=== PATIENT | female | born 1990 | race Asian ===

== ENCOUNTER 2019-03-26 21:15 | Emergency (ER) | payer OTHER, SELFPAY ==
--- OUTSIDE RECORDS SUMMARY | 2019-03-26 21:16 | XMS REPORT ---
:1990 Author Organization [facility] Address [address] [place] [address] Dr. Washington [address] [place] [id number] Care Team Providers Name Role Phone Unavailable Unavailable Unavailable Problems This patient has no known problems. Allergies, Adverse Reactions, Alerts This patient has no known allergies or adverse reactions. Medications This patient has no known medications.
[2019-03-26 22:59] LABS: Absolute Lymphocytes (CBC) 1.7 K/uL (0.7-4.9); Basophils % 0.2 % (0-1.3); Hematocrit 42.5 % (36.0-45.0); Lymphocytes % 14.6 % (15.3-44.8); MPV 8.6 fL (7.6-11.3); RBC Red Blood Cell Count 5.04 M/uL (3.86-4.86)
[2019-03-26] MEDS ORDERED: FENTANYL CITR 100 MCG/2 ML ONE (23:18)
[2019-03-26] MEDS ORDERED: NA CHLORIDE 0.9% 1,000 ML ONE (23:18)
[2019-03-26 23:19] LABS: ALT/SGPT 137 U/L (12-78); AST/SGOT 231 U/L (15-37); Albumin 4.1 g/dL (3.4-5.0); Alkaline Phosphatase 102 U/L (45-117); BUN Blood Urea Nitrogen 15 mg/dL (7-18); Bicarbonate 27 mmol/L (21-32); Bilirubin Direct 0.2 mg/dL (0-0.2); Bilirubin Total 0.3 mg/dL (0.2-1.0); Glucose Level 135 mg/dL (74-106); Lipase 103 U/L (73-393); Potassium 3.9 mmol/L (3.5-5.1); Protein, Total 8.2 g/dL (6.4-8.2); Sodium Level 141 mmol/L (136-145)
[2019-03-26 23:20] LABS: Urine Blood NEGATIVE (NEG); Urine Glucose NEGATIVE (NEG); Urine Protein NEGATIVE (NEG); Urine Specific Gravity 1.025 (1.005-1.030)
[2019-03-26 23:20] LABS: Urine Bacteria <20 /HPF (<20); Urine Culture Reflex Order NOT NEEDED; Urine RBC <5 /HPF (NONE SEEN)
--- NOTE | 2019-03-27 01:27 | EDPHYS ---
Physician Documentation [facility] Name: Annetta Back Age: 28 yrs Sex: Female : 1990 Arrival Date: 03/26/2019 Time: 21:18 Bed 26 Private MD: ED Physician Mandeep Christianson HPI: 03/26 22:35 This 28 yrs old Female presents to ER via Wheelchair with complaints of Abdominal cp Pain. 22:35 The patient presents with abdominal pain in the epigastric area. Onset: The cp symptoms/episode began/occurred 2 hour(s) ago. 22:35 Associated signs and symptoms: Pertinent positives: nausea, pain to mid upper back cp times 3 days, Pertinent negatives: blood in stools, chest pain, constipation, diarrhea, fever, shortness of breath. 22:35 Severity of pain: in the emergency department the pain is unchanged despite home cp interventions. 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 - Social history:: Smoking status: Patient/guardian denies using tobacco. - Ebola Screening: : Patient denies travel to an Ebola-affected area in the 21 days before illness onset. ROS: 22:45 Constitutional: Negative for body aches, chills, fever, poor PO intake. cp 22:45 Eyes: Negative for injury, pain, redness, and discharge. cp 22:45 ENT: Negative for drainage from ear(s), ear pain, sore throat, difficulty swallowing, difficulty handling secretions. 22:45 Cardiovascular: Negative for chest pain, edema, palpitations. 22:45 Respiratory: Negative for cough, shortness of breath, wheezing. 22:45 Abdomen/GI: Positive for abdominal pain, of the epigastric area, Negative for vomiting, diarrhea, constipation, black/tarry stool, rectal bleeding. 22:45 Back: Positive for pain at rest, of the mid upper back, Negative for injury or acute deformity. 22:45 : Negative for urinary symptoms, pelvic pain, flank pain, vaginal bleeding, vaginal discharge. 22:45 Skin: Negative for cellulitis, rash. 22:45 Neuro: Negative for altered mental status, dizziness, headache, numbness, syncope, weakness. 22:45 All other systems are negative. Exam: 22:50 Constitutional: The patient appears in no acute distress, alert, awake, non-toxic, well cp developed, well nourished, uncomfortable. 22:50 Head/Face: Normocephalic, atraumatic. cp 22:50 Eyes: Periorbital structures: appear normal, Conjunctiva: normal, no exudate, no injection, Sclera: no appreciated abnormality, Lids and lashes: appear normal, bilaterally. 22:50 ENT: External ear(s): are unremarkable, Nose: is normal, Mouth: Lips: moist, Oral mucosa: pink and intact, moist, Posterior pharynx: is normal, airway is patent, no erythema, no exudate. 22:50 Neck: ROM/movement: is normal, is supple, without pain, no range of motions limitations, no nuchal rigidity. 22:50 Chest/axilla: Inspection: normal, Palpation: is normal, no crepitus, no tenderness. 22:50 Cardiovascular: Rate: normal, Rhythm: regular. 22:50 Respiratory: the patient does not display signs of respiratory distress, Respirations: normal, no use of accessory muscles, no retractions, no splinting, no tachypnea, labored breathing, is not present, Breath sounds: are clear throughout, no decreased breath sounds, no stridor, no wheezing. 22:50 Abdomen/GI: Inspection: abdomen appears normal, Bowel sounds: active, all quadrants, Palpation: soft, in all quadrants, moderate abdominal tenderness, in the epigastric area and right upper quadrant, rebound tenderness, is not appreciated, voluntary guarding, is elicited in the epigastric area and right upper quadrant. 22:50 Back: pain, that is moderate, of the upper mid back, ROM is normal. 22:50 Skin: cellulitis, is not appreciated, no rash present. 22:50 Neuro: Orientation: to person, place \T\ time. Mentation: is normal, Cerebellar function: is grossly normal, Motor: moves all fours, strength is normal, Sensation: is normal. Vital Signs: 21:23 BP 102 / 78; Pulse 80; Resp 18; Temp 98.4; Pulse Ox 97% on R/A; Weight 73.94 kg (R); aj1 Height 5 ft. 2 in. (157.48 cm) (R); Pain 9/10; 23:30 BP 115 / 64; Pulse 80; Resp 18; Pulse Ox 99% on R/A; wh 03/27 00:30 BP 119 / 59; Pulse 66; Resp 18; Pulse Ox 100% on R/A; wh 01:30 BP 116 / 78; Pulse 67; Resp 18; Pulse Ox 100% on R/A; wh 03/26 21:23 Body Mass Index 29.81 (73.94 kg, 157.48 cm) aj1 MDM: 03/26 22:35 Patient medically screened. cp 23:00 Differential diagnosis: appendicitis, bowel obstruction, cholecystitis, Cholelithiasis, cp gastritis, pancreatitis, Peptic Ulcer Disease, Perf. Duodenal Ulcer, Perf. Gastric Ulcer, urinary tract infection. 03/27 01:24 Data reviewed: vital signs, nurses notes, lab test result(s), radiologic studies, CT cp scan, I have discussed the patient's presentation/case with the attending Emergency Department Physician; and as a result, I will discharge patient. 01:24 Counseling: I had a detailed discussion with the patient and/or guardian regarding: the cp historical points, exam findings, and any diagnostic results supporting the discharge/admit diagnosis, lab results, radiology results, to return to the emergency department if symptoms worsen or persist or if there are any questions or concerns that arise at home. Response to treatment: the patient's symptoms have markedly improved after treatment, VSS. Pain improved, and as a result, I will discharge patient. Special discussion: Based on the patient's Hx, exam, and Dx evaluation, there is no indication for emergent surgery or inpatient Tx. It is understood by the patient/guardian that if the Sx's persist or worsen they need to return immediately for re-evaluation. 03/26 22:25 Order name: Basic Metabolic Panel; Complete Time: 00:06 cp 03/27 00:06 Interpretation: Normal except: GLUC 135. cp 03/26 22:25 Order name: CBC with Diff; Complete Time: 23:03 cp 03/26 23:03 Interpretation: Normal except: WBC 11.8; RBC 5.04; MCH 26.6; MCHC 31.5; MISSY% 79.7; LYM% cp 14.6; NEUT A 9.4. 03/26 22:25 Order name: Creatinine for Radiology; Complete Time: 00:06 03/26 22:25 Order name: Hepatic Function; Complete Time: 00:06 cp 03/27 00:07 Interpretation: Normal except: AST 231; ALT 137; GLOB 4.1; A/G 1.0. 03/26 22:25 Order name: Lipase; Complete Time: 00:06 cp 03/26 22:25 Order name: Urine Microscopic Only; Complete Time: 00:06 cp 03/26 22:25 Order name: IV Saline Lock; Complete Time: 22:46 cp 03/26 22:25 Order name: Labs collected and sent; Complete Time: 22:46 cp 03/26 22:25 Order name: Urine Test (obtain specimen); Complete Time: 22:46 cp 03/26 23:02 Order name: CT Abd/Pelvis - Without Contrast 03/26 23:15 Order name: Urine Dipstick--Ancillary (enter results); Complete Time: 00:06 ar5 03/26 23:15 Order name: Urine --Ancillary (enter results); Complete Time: 00:06 ar5 Administered Medications: 03/26 23:25 Drug: NS 0.9% 1000 ml Route: IV; Rate: 1 bolus; Site: left antecubital; 03/27 00:53 Follow up: Response: No adverse reaction; IV Status: Completed infusion 03/26 23:25 Drug: fentaNYL (PF) 25 mcg Route: IVP; Site: left antecubital; 03/27 00:53 Follow up: Response: No adverse reaction; Pain is decreased; RASS: Alert and Calm (0) Disposition: 03/27/19 01:25 Discharged to Home. Impression: Epigastric pain, Back pain. - Condition is Stable. - Discharge Instructions: Abdominal Pain, Adult, Back Pain, Adult. - Prescriptions for Bentyl 20 mg Oral Tablet - take 1 tablet by ORAL route every 6 hours As needed; 20 tablet. Zofran 4 mg Oral Tablet - take 1 tablet by ORAL route every 12 hours As needed; 20 tablet. Ibuprofen 800 mg Oral Tablet - take 1 tablet by ORAL route every 8 hours As needed take with food; 30 tablet. - Medication Reconciliation Form, Thank You Letter, Antibiotic Education, Prescription Opioid Use form. - Follow up: Emergency Department; When: As needed; Reason: Worsening of condition. - Problem is new. - Symptoms have improved. Signatures: Dispatcher [employer] EDRochelle Garza RN RN aj1 Mauricio Ambrose PA PA cp Habalo, Winsy wh Corrections: (The following items were deleted from the chart) 01:52 01:25 03/27/2019 01:25 Discharged to Home. Impression: Epigastric pain; Back pain. Condition is Stable. Forms are Medication Reconciliation Form, Thank You Letter, Antibiotic Education, Prescription Opioid Use. Follow up: Emergency Department; When: As needed; Reason: Worsening of condition. Problem is new. Symptoms have improved. cp 23:35 03/26 22:35 Associated signs and symptoms: Pertinent positives: nausea, upper mid back cp pain times 2 days, cp
--- NOTE | 2019-03-27 01:27 | ER ---
Nurse's Notes [facility] Name: Annetta Back Age: 28 yrs Sex: Female : 1990 Arrival Date: 03/26/2019 Time: 21:18 Bed 26 Private MD: Diagnosis: Epigastric pain;Back pain Presentation: 03/26 21:21 Presenting complaint: Patient states: Pain to the right upper back since Friday and aj1 then epigastric pain that started 2 hours ago. Denies N/V/D. Denies fever. Transition of care: patient was not received from another setting of care. Onset of symptoms was March 26, 2019. Risk Assessment: Do you want to hurt yourself or someone else? Patient reports no desire to harm self or others. Initial Sepsis Screen: Does the patient meet any 2 criteria? No. Patient's initial sepsis screen is negative. Does the patient have a suspected source of infection? Yes: Acute abdominal pain. Care prior to arrival: None. 21:21 Method Of Arrival: Wheelchair aj 21:21 Acuity: AMY 3 aj1 Triage Assessment: 21:23 General: Appears uncomfortable, Behavior is cooperative, restless. Pain: Complains of aj1 pain in right scapular area and epigastric area Pain currently is 9 out of 10 on a pain scale. Neuro: Level of Consciousness is awake, alert, obeys commands. Cardiovascular: Patient's skin is warm and dry. Respiratory: Airway is patent Respiratory effort is even, unlabored, Respiratory pattern is regular, symmetrical. GI: Reports upper abdominal pain. 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 - Social history:: Smoking status: Patient/guardian denies using tobacco. - Ebola Screening: : Patient denies travel to an Ebola-affected area in the 21 days before illness onset. Screenin:05 Abuse screen: Denies threats or abuse. Denies injuries from another. Nutritional wh screening: No deficits noted. Tuberculosis screening: No symptoms or risk factors identified. Fall Risk None identified. Assessment: 23:05 General: Appears in no apparent distress. uncomfortable, Behavior is calm, cooperative, ca1 appropriate for age. Pain: Complains of pain in epigastric area Pain radiates to back Pain currently is 10 out of 10 on a pain scale. Quality of pain is described as aching. 23:05 Neuro: Level of Consciousness is awake, alert, obeys commands, Oriented to. Cardiovascular: Heart tones S1 S2. Respiratory: Airway is patent Respiratory effort is even, unlabored, Respiratory pattern is regular, symmetrical. Respiratory: Breath sounds are clear bilaterally. GI: Abdomen is flat, non-distended, Bowel sounds present X 4 quads. Abd is soft and non tender X 4 quads. : No signs and/or symptoms were reported regarding the genitourinary system. EENT: No signs and/or symptoms were reported regarding the EENT system. Derm: Skin is intact, is healthy with good turgor, Skin is pink, warm \T\ dry. normal. Musculoskeletal: Range of motion: intact in all extremities. 03/27 00:30 Reassessment: Patient appears in no apparent distress at this time. No changes from previously documented assessment. Patient and/or family updated on plan of care and expected duration. Pain level reassessed. Patient is alert, oriented x 3, equal unlabored respirations, skin warm/dry/pink. 01:50 Reassessment: Patient appears in no apparent distress at this time. No changes from previously documented assessment. Patient and/or family updated on plan of care and expected duration. Pain level reassessed. Patient is alert, oriented x 3, equal unlabored respirations, skin warm/dry/pink. Patient states feeling better. Patient states symptoms have improved. Vital Signs: 03/26 21:23 BP 102 / 78; Pulse 80; Resp 18; Temp 98.4; Pulse Ox 97% on R/A; Weight 73.94 kg (R); aj1 Height 5 ft. 2 in. (157.48 cm) (R); Pain 9/10; 23:30 BP 115 / 64; Pulse 80; Resp 18; Pulse Ox 99% on R/A; 03/27 00:30 BP 119 / 59; Pulse 66; Resp 18; Pulse Ox 100% on R/A; 01:30 BP 116 / 78; Pulse 67; Resp 18; Pulse Ox 100% on R/A; 03/26 21:23 Body Mass Index 29.81 (73.94 kg, 157.48 cm) aj1 ED Course: 03/26 21:18 Patient arrived in ED. cl3 21:23 Triage completed. 1 21:23 Arm band placed on Patient placed in waiting room, Patient notified of wait time. 1 22:25 Mauricio Ambrose PA is PHCP. 22:25 Mandeep Christianson MD is Attending Physician. 22:29 Ruthy Montiel is Primary Nurse. 22:45 Inserted saline lock: 20 gauge in left antecubital area, using aseptic technique. Blood wh collected. 23:05 Patient has correct armband on for positive identification. Placed in gown. Bed in low wh position. Call light in reach. Side rails up X 1. Pulse ox on. NIBP on. 03/27 00:29 CT Abd/Pelvis - Without Contrast In Process Unspecified. EDMS 01:51 No provider procedures requiring assistance completed. IV discontinued, intact, bleeding controlled, No redness/swelling at site. Administered Medications: 03/26 23:25 Drug: NS 0.9% 1000 ml Route: IV; Rate: 1 bolus; Site: left antecubital; 03/27 00:53 Follow up: Response: No adverse reaction; IV Status: Completed infusion 03/26 23:25 Drug: fentaNYL (PF) 25 mcg Route: IVP; Site: left antecubital; 03/27 00:53 Follow up: Response: No adverse reaction; Pain is decreased; RASS: Alert and Calm (0) Outcome: 01:25 Discharge ordered by MD. 01:52 Discharged to home ambulatory, with family. 01:52 Condition: good 01:52 Discharge instructions given to patient, Instructed on discharge instructions, follow up and referral plans. medication usage, POC Abd Pain Demonstrated understanding of instructions, follow-up care, medications, POC Prescriptions given X 3. 01:52 Patient left the ED. Signatures: Dispatcher [employer] EDMS Rochelle Huang RN RN aj1 Mauricio Ambrose PA PA cp Habalo, Winsy Yocasta Jonas RN RN ca1 Lewis, Charde cl3
[2019-03-27 03:04] VITALS: TEMP 98.4
[2019-03-27 03:06] VITALS: O2SAT 100
[2019-03-27 03:07] VITALS: BP 116/78
--- NOTE | 2019-03-30 13:50 | RAD REPORT ---
EXAM DESCRIPTION: CT - Abdomen Pelvis Wo Contrast - 03/27/2019 3:11 am CLINICAL HISTORY: ABD PAIN COMPARISON: None. TECHNIQUE: CT ABDOMEN PELVIS WITHOUT IV CONTRAST on 03/26/2019 11:02 PM CDT This exam was performed according to our departmental dose-optimization program, which includes autom ated exposure control, adjustment of the mA and/or kV according to patient size and/or use of iterati ve reconstruction technique. FINDINGS: Lower lungs are clear. Abdomen: The liver is normal in appearance. There is no biliary dilatation. Gallbladder is normal in appearance. The pancreas and spleen are normal in appearance. The adrenal glands and kidneys are unre markable. Abdominal aorta is normal in course and caliber without aneurysm. There is no free air. There is no r etroperitoneal adenopathy. Pelvis: There is no bowel obstruction. Urinary bladder is unremarkable. There is no free fluid. The u terus is normal in size. Appendix is normal. Skeleton: There are no acute osseous findings. No suspicious bony lesions. IMPRESSION: No definite acute inflammatory process. Electronically signed by: Avelino Bo MD 03/27/2019 12:27 AM CDT Due to temporary technical issues with the PACS/Fluency reporting system, reports are being signed by the in house radiologist as a courtesy to ensure prompt reporting. The interpreting radiologist is f ully responsible for the content of the report.
== END 2019-03-27 01:52 | disposition home or self-care (01) ==
LOC: ER 21:15
DX: M54.9 Dorsalgia, unspecified (principal); I95.9 Hypotension, unspecified; Z91.048 Other nonmedicinal substance allergy status
CPT/HCPCS: 36415; 74176; 80048; 80076; 81003; 81015; 81025; 83690; 85025; 96361; 96374; 99284; J3010; J7030

== ENCOUNTER 2020-03-21 19:32 | Emergency (ER) | payer SELFPAY ==
--- OUTSIDE RECORDS SUMMARY | 2020-03-21 19:34 | XMS REPORT | Continuity of Care Document ---
:1990 Author Organization [facility] Address [address] [place] [address] Dr. Washington [address] [place] [id number] Care Team Providers Name Role Phone Unavailable Unavailable Unavailable Problems This patient has no known problems. Allergies, Adverse Reactions, Alerts This patient has no known allergies or adverse reactions. Medications This patient has no known medications. Procedures This patient has no known procedures. Results This patient has no known results.
[2020-03-21 21:00] LABS: Urine Blood TRACE (NEG); Urine Glucose NEGATIVE (NEG); Urine Protein NEGATIVE (NEG); Urine pH 5.5 (5.0-7.0)
[2020-03-21] MEDS ORDERED: DIPHENHYDRAMINE 50 MG/ML VIAL ONE (21:57)
[2020-03-21] MEDS ORDERED: METOCLOPRAMIDE 10 MG/2mL INJ ONE (21:57)
[2020-03-21] MEDS ORDERED: KETOROLAC 30 MG/ML INJ ONE (21:57)
[2020-03-21] MEDS ORDERED: NA CHLORIDE 0.9% 1,000 ML ONE (21:57)
[2020-03-21 22:05] LABS: Absolute Lymphocytes (CBC) 2.7 K/uL (0.7-4.9); Basophils % 0.4 % (0-1.3); Lymphocytes % 35.6 % (15.3-44.8); MPV 8.1 fL (7.6-11.3); RBC Red Blood Cell Count 5.16 M/uL (3.86-4.86)
[2020-03-21 22:22] LABS: ALT/SGPT 24 U/L (12-78); AST/SGOT 11 U/L (15-37); Alkaline Phosphatase 71 U/L (45-117); BUN Blood Urea Nitrogen 7 mg/dL (7-18); Bicarbonate 28 mmol/L (21-32); Bilirubin Total 0.2 mg/dL (0.2-1.0); Glucose Level 91 mg/dL (74-106); Protein, Total 8.4 g/dL (6.4-8.2); Sodium Level 142 mmol/L (136-145)
--- NOTE | 2020-03-21 23:10 | ER ---
Nurse's Notes [facility] Name: Annetta Malcolm Age: 29 yrs Sex: Female : 1990 Arrival Date: 03/21/2020 Time: 19:33 Bed 20 Private MD: Diagnosis: Headache Presentation: 03/21 20:18 Chief complaint: Patient states: Feeling sick and tired x 2 weeks. Feels warm, dizzy, ca1 weak, headache x 2 weeks. Denies fever, Htemp 98F. Coronavirus screen: Client denies travel out of the [place] in the last 14 days. At this time, the client does not indicate any symptoms associated with coronavirus-19. Ebola Screen: Patient negative for fever greater than or equal to 101.5 degrees Fahrenheit, and additional compatible Ebola Virus Disease symptoms Patient denies exposure to infectious person. Patient denies travel to an Ebola-affected area in the 21 days before illness onset. No symptoms or risks identified at this time. Initial Sepsis Screen: Does the patient meet any 2 criteria? No. Patient's initial sepsis screen is negative. Does the patient have a suspected source of infection? No. Patient's initial sepsis screen is negative. Risk Assessment: Do you want to hurt yourself or someone else? Patient reports no desire to harm self or others. Onset of symptoms was March 21, 2020. 20:18 Method Of Arrival: Ambulatory ca1 20:18 Acuity: AMY 3 ca1 Triage Assessment: 21:20 Pain: Also complains of dizziness. rr5 21:20 Headache History: The patient has had previous headaches and this one is different than rr5 previous episodes. General: Appears in no apparent distress. comfortable, Behavior is calm, cooperative, appropriate for age. Pain: Complains of pain in forehead. 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 - Social history:: Smoking status: Patient denies any tobacco usage or history of. Screenin:30 Abuse screen: Denies threats or abuse. Denies injuries from another. Nutritional rr5 screening: No deficits noted. Tuberculosis screening: No symptoms or risk factors identified. Fall Risk IV access (20 points). Total Ortiz Fall Scale indicates No Risk (0-24 pts). Assessment: 21:05 General: Appears in no apparent distress. comfortable, Behavior is calm, cooperative, rr5 appropriate for age, Reports fatigue for. 21:05 Pain: Complains of pain in head Pain currently is 8 out of 10 on a pain scale. Quality rr5 of pain is described as aching, Pain began gradually, Is intermittent. Neuro: Level of Consciousness is awake, alert, obeys commands, Oriented to person, place, time, situation, Reports dizziness, headache. Cardiovascular: Capillary refill < 3 seconds Patient's skin is warm and dry. Respiratory: Airway is patent Respiratory effort is even, unlabored, Respiratory pattern is regular, symmetrical. GI: No signs and/or symptoms were reported involving the gastrointestinal system. : No signs and/or symptoms were reported regarding the genitourinary system. EENT: No signs and/or symptoms were reported regarding the EENT system. Derm: Skin is intact, is healthy with good turgor, Skin temperature is warm. Musculoskeletal: Circulation, motion, and sensation intact. Capillary refill < 3 seconds. 22:00 Reassessment: Patient appears in no apparent distress at this time. Patient is alert, rr5 oriented x 3, equal unlabored respirations, skin warm/dry/pink. Vital Signs: 20:18 BP 130 / 69; Pulse 68; Resp 18 S; Temp 98.2(TE); Pulse Ox 100% on R/A; Weight 77.11 kg ca1 (R); Height 5 ft. 2 in. (157.48 cm) (R); 21:20 BP 129 / 68; Pulse 70; Resp 18; Pulse Ox 100% ; Pain 8/10; rr5 22:20 BP 118 / 62; Pulse 65; Resp 14; Pulse Ox 99% on R/A; rr5 23:23 BP 121 / 70; Pulse 61; Resp 16; Pulse Ox 99% ; Pain 0/10; rr5 20:18 Body Mass Index 31.09 (77.11 kg, 157.48 cm) ca1 ED Course: 19:33 Patient arrived in ED. am2 20:21 Triage completed. ca1 20:22 Arm band placed on right wrist. ca1 21:05 Chandu Adam, RN is Primary Nurse. rr5 21:10 Isael Goldstein NP is PHCP. pm1 21:10 Mauricio Kauffman MD is Attending Physician. pm1 21:10 Patient has correct armband on for positive identification. Bed in low position. Call rr5 light in reach. Pulse ox on. NIBP on. 21:44 CT Head Brain wo Cont In Process Unspecified. EDMS 22:00 Inserted saline lock: 20 gauge in right forearm, using aseptic technique. Blood rr5 collected. 23:24 No provider procedures requiring assistance completed. IV discontinued, intact, rr5 bleeding controlled, No redness/swelling at site. Pressure dressing applied. Administered Medications: 21:50 Drug: NS 0.9% 1000 ml Route: IV; Rate: 1000 ml; Site: right forearm; rr5 23:00 Follow up: Response: No adverse reaction; IV Status: Completed infusion; IV Intake: rr5 1000ml 21:51 Drug: TORadol 30 mg Route: IVP; Site: right forearm; rr5 22:51 Follow up: Response: No adverse reaction; Marked relief of symptoms rr5 21:55 Drug: Reglan 10 mg Route: IVP; Site: right forearm; rr5 22:55 Follow up: Response: No adverse reaction; Marked relief of symptoms rr5 21:57 Drug: Benadryl 12.5 mg Route: IVP; Site: right forearm; rr5 23:00 Follow up: Response: No adverse reaction; Marked relief of symptoms rr5 Intake: 23:00 IV: 1000ml; Total: 1000ml. rr5 Outcome: 23:09 Discharge ordered by . pm1 23:24 Discharged to home ambulatory. rr5 23:24 Condition: stable 23:24 Discharge instructions given to patient, Instructed on discharge instructions, follow up and referral plans. medication usage, Demonstrated understanding of instructions, follow-up care, medications, Prescriptions given X 1. 23:26 Patient left the ED. rr5 Signatures: Dispatcher [employer] EDNJ Isael Goldstein NP CORPORATE DIRECTOR TALENT ASSESSMENT pm1 Jayne Moreno am2 Chandu Adam, RN RN rr5 Yocasta Jonas RN RN ca1 Corrections: (The following items were deleted from the chart) 21:09 20:18 Chief complaint: Patient states: Feeling sick and tired x 2 weeks. Feels warm, ca1 dizzy, weak, headache x 2 weeks. Denies fever, Htemp 98F. ca1
--- NOTE | 2020-03-21 23:10 | EDPHYS ---
Physician Documentation [facility] Name: Annetta Malcolm Age: 29 yrs Sex: Female : 1990 Arrival Date: 03/21/2020 Time: 19:33 Bed 20 Private MD: ANTOINE Physician Mauricio Kauffman HPI: 03/21 21:03 This 29 yrs old Female presents to ER via Ambulatory with complaints of Headache, pm1 Dizziness, fatigue. 21:03 The patient complains of pain to the forehead. The patient describes the headache as pm1 aching. Onset: The symptoms/episode began/occurred 2 week(s) ago. Associated signs and symptoms: Pertinent positives: dizziness, Pertinent negatives: fever, nausea, vomiting, weakness. Severity of symptoms: in the emergency department the pain is unchanged. Patient is concerned that she might have diabetes. Patient with gestational diabetes with prior two pregnancies and she has not followed up with a doctor in the past two years to assess for diabetes. 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 - Social history:: Smoking status: Patient denies any tobacco usage or history of. ROS: 21:03 Cardiovascular: Negative for chest pain, palpitations, and edema, Respiratory: Negative pm1 for shortness of breath, cough, wheezing, and pleuritic chest pain, Abdomen/GI: Negative for abdominal pain, nausea, vomiting, diarrhea, and constipation, Back: Negative for injury and pain, MS/Extremity: Negative for injury and deformity, Skin: Negative for injury, rash, and discoloration. 21:03 Constitutional: Positive for fatigue, Negative for body aches, chills, fever, poor PO intake. 21:03 Neuro: Positive for dizziness, headache. Exam: 21:03 Constitutional: This is a well developed, well nourished patient who is awake, alert, pm1 and in no acute distress. Head/Face: Normocephalic, atraumatic. Eyes: Pupils equal round and reactive to light, extra-ocular motions intact. Lids and lashes normal. Conjunctiva and sclera are non-icteric and not injected. Cornea within normal limits. Periorbital areas with no swelling, redness, or edema. ENT: Nares patent. No nasal discharge, no septal abnormalities noted. Tympanic membranes are normal and external auditory canals are clear. Oropharynx with no redness, swelling, or masses, exudates, or evidence of obstruction, uvula midline. Mucous membranes moist. Neck: Trachea midline, no thyromegaly or masses palpated, and no cervical lymphadenopathy. Supple, full range of motion without nuchal rigidity, or vertebral point tenderness. No Meningismus. 21:03 Skin: Warm, dry with normal turgor. Normal color with no rashes, no lesions, and no evidence of cellulitis. MS/ Extremity: Pulses equal, no cyanosis. Neurovascular intact. Full, normal range of motion. 21:03 Cardiovascular: Exam negative for acute changes, Rate: normal, Rhythm: regular, Pulses: no pulse deficits are appreciated. 21:03 Respiratory: Exam negative for acute changes, respiratory distress, shortness of breath. 21:03 Abdomen/GI: Exam negative for acute changes, Inspection: abdomen appears normal, Palpation: abdomen is soft and non-tender, in all quadrants. 21:03 Neuro: Exam negative for acute changes, Orientation: is normal, Mentation: is normal, Cranial nerves: CN II- XII are normal as tested, Motor: is normal, moves all fours, strength is normal, strength is 5/5 in all extremities. Vital Signs: 20:18 BP 130 / 69; Pulse 68; Resp 18 S; Temp 98.2(TE); Pulse Ox 100% on R/A; Weight 77.11 kg ca1 (R); Height 5 ft. 2 in. (157.48 cm) (R); 21:20 BP 129 / 68; Pulse 70; Resp 18; Pulse Ox 100% ; Pain 8/10; rr5 22:20 BP 118 / 62; Pulse 65; Resp 14; Pulse Ox 99% on R/A; rr5 23:23 BP 121 / 70; Pulse 61; Resp 16; Pulse Ox 99% ; Pain 0/10; rr5 20:18 Body Mass Index 31.09 (77.11 kg, 157.48 cm) ca1 MDM: 21:15 Patient medically screened. pm1 22:32 Data reviewed: vital signs. Data interpreted: Pulse oximetry: on room air is 100 %. pm1 Interpretation: normal. 23:08 Counseling: I had a detailed discussion with the patient and/or guardian regarding: the pm1 historical points, exam findings, and any diagnostic results supporting the discharge/admit diagnosis, lab results, radiology results, the need for outpatient follow up, to return to the emergency department if symptoms worsen or persist or if there are any questions or concerns that arise at home. 03/21 20:44 Order name: Urine Dipstick--Ancillary (enter results); Complete Time: 21:20 mw2 03/21 20:44 Order name: Urine --Ancillary (enter results); Complete Time: 21:20 2 03/21 21:23 Order name: CT Head Brain wo Cont pm1 03/21 21:23 Order name: CBC with Diff; Complete Time: 22:24 pm1 03/21 21:23 Order name: CMP; Complete Time: 22:24 pm1 Administered Medications: 21:50 Drug: NS 0.9% 1000 ml Route: IV; Rate: 1000 ml; Site: right forearm; rr5 23:00 Follow up: Response: No adverse reaction; IV Status: Completed infusion; IV Intake: rr5 1000ml 21:51 Drug: TORadol 30 mg Route: IVP; Site: right forearm; rr5 22:51 Follow up: Response: No adverse reaction; Marked relief of symptoms rr5 21:55 Drug: Reglan 10 mg Route: IVP; Site: right forearm; rr5 22:55 Follow up: Response: No adverse reaction; Marked relief of symptoms rr5 21:57 Drug: Benadryl 12.5 mg Route: IVP; Site: right forearm; rr5 23:00 Follow up: Response: No adverse reaction; Marked relief of symptoms rr5 Disposition: 03/22 16:42 Co-signature as Attending Physician, Mauricio Kauffman MD I agree with the assessment and carlos plan of care. Disposition: 03/21/20 23:09 Discharged to Home. Impression: Headache. - Condition is Stable. - Discharge Instructions: General Headache Without Cause. - Prescriptions for Fiorinal 50- 325-40 mg Oral Capsule - take 1 capsule by ORAL route every 4 hours As needed - not to exceed 6 capsules per day; 20 capsule. - Medication Reconciliation Form, Thank You Letter, Antibiotic Education, Prescription Opioid Use form. - Follow up: Emergency Department; When: As needed; Reason: Worsening of condition. Follow up: Private Physician; When: 2 - 3 days; Reason: Recheck today's complaints, Continuance of care, Re-evaluation by your physician. - Problem is new. - Symptoms are resolved. Signatures: Dispatcher [employer] EDMS Mauricio Kauffman, Isael Nash MD, cha, PRIMARY CARE PEDIATRICIAN PRIMARY CARE PEDIATRICIAN pm1 Cahndu Adam RN RN rr5 Yocasta Jonas RN RN ca1 Corrections: (The following items were deleted from the chart) 03/21 23:26 23:09 03/21/2020 23:09 Discharged to Home. Impression: Headache. Condition is Stable. rr5 Forms are Medication Reconciliation Form, Thank You Letter, Antibiotic Education, Prescription Opioid Use. Follow up: Emergency Department; When: As needed; Reason: Worsening of condition. Follow up: Private Physician; When: 2 - 3 days; Reason: Recheck today's complaints, Continuance of care, Re-evaluation by your physician. Problem is new. Symptoms are resolved. pm1
--- NOTE | 2020-03-22 12:28 | RAD REPORT ---
EXAM DESCRIPTION: CT - Head Brain Wo Cont - 03/22/2020 6:47 am CLINICAL HISTORY: HEADACHE TECHNIQUE: Axial computed tomography images of the head/brain without intravenous contrast. Sagitt al and coronal reformatted images were created and reviewed. This CT exam was performed using one o r more of the following dose reduction techniques: automated exposure control, adjustment of the mA and/or kV according to patient size, and/or use of iterative reconstruction technique. COMPARISON: No relevant prior studies available. FINDINGS: Brain: Unremarkable. No hemorrhage. No significant white matter disease. No edema. Ventricles: Unremarkable. No ventriculomegaly. Bones/joints: Unremarkable. No acute fracture. Soft tissues: Unremarkable. Sinuses: Unremarkable as visualized. No acute sinusitis. Mastoid air cells: Unremarkable as visualized. No mastoid effusion. IMPRESSION: No abnormality noted. Electronically signed by: Rossy López MD 03/21/2020 9:55 PM CDT Due to temporary technical issues with the PACS/Fluency reporting system, reports are being signed by the in house radiologist without review as a courtesy to ensure prompt reporting. The interpreting r adiologist is fully responsible for the content of the report.
== END 2020-03-21 23:26 | disposition home or self-care (01) ==
LOC: ER 19:32
DX: R51 Headache (principal); Z91.09 Other allergy status, other than to drugs and biological substances
CPT/HCPCS: 36415; 70450; 80053; 81003; 81025; 85025; 96361; 96374; 96375; 99284; J1200; J2765; J7030

== ENCOUNTER 2021-11-21 21:21 | Emergency (ER) | payer SELFPAY ==
--- OUTSIDE RECORDS SUMMARY | 2021-11-21 21:23 | XMS REPORT | Continuity of Care Document ---
:1990 Author Organization [facility] Address [address] [place] [address] Dr. [place] [address] [place] [id number] Care Team Providers Name Role Phone Unavailable Unavailable Unavailable Problems This patient has no known problems. Allergies, Adverse Reactions, Alerts This patient has no known allergies or adverse reactions. Medications This patient has no known medications. Procedures This patient has no known procedures. Results This patient has no known results.
[2021-11-21] MEDS ORDERED: NA CHLORIDE 0.9% 2,000 ML ONE (22:15)
[2021-11-21] MEDS ORDERED: ACETAMINOPHEN 325 MG TABLET ONE (22:15)
[2021-11-21] MEDS ORDERED: NA CHLORIDE 0.9% 500 ML ONE (22:15)
[2021-11-21 22:24] LABS: Absolute Lymphocytes (CBC) 0.3 K/uL (0.7-4.9); Hematocrit 39.5 % (36.0-45.0); Lymphocytes % 2.7 % (15.3-44.8); MPV 8.5 fL (7.6-11.3); RBC Red Blood Cell Count 4.94 M/uL (3.86-4.86)
[2021-11-21 22:39] LABS: ALT/SGPT 56 U/L (12-78); AST/SGOT 36 U/L (15-37); Albumin 3.6 g/dL (3.4-5.0); Alkaline Phosphatase 86 U/L (45-117); BUN Blood Urea Nitrogen 8 mg/dL (7-18); Bicarbonate 22 mmol/L (21-32); Bilirubin Total 0.6 mg/dL (0.2-1.0); Glucose Level 264 mg/dL (74-106); Potassium 3.5 mmol/L (3.5-5.1); Protein, Total 7.4 g/dL (6.4-8.2); Sodium Level 132 mmol/L (136-145)
[2021-11-21 22:48] LABS: Protime INR 1.06
[2021-11-21 23:07] LABS: SARS-COV-2 RT PCR NEGATIVE (NEGATIVE)
[2021-11-21 23:17] LABS: Urine Blood Trace-lysed (Negative); Urine Glucose 1+ (Negative); Urine Protein Negative (Negative); Urine pH 5.5 (5.0-7.0)
--- NOTE | 2021-11-21 23:20 | ER ---
Nurse's Notes [facility] Name: Annetta Malcolm Age: 31 yrs Sex: Female : 1990 Arrival Date: 11/21/2021 Time: 21:23 Bed 14 Private MD: Diagnosis: Fever, unspecified;Viral infection, unspecified;Acute upper respiratory infection, unspecified;Hyperglycemia, unspecified Presentation: 11/21 21:27 Chief complaint: Patient states: "I was running a 101 temperature and my throat hurts, vc1 I feel really weak." Spouse and/or significant other states: "I came home from work and she was really weak and said she was running a fever.". Coronavirus screen: Vaccine status: Patient reports receiving the 2nd dose of the covid vaccine. Pfizer chills, cough unrelated to allergies, fatigue, fever, headache, sore throat, Client presents with at least one sign or symptom that may indicate coronavirus-19. Standard/surgical mask placed on the client. Provider contacted for isolation considerations. Ebola Screen: No symptoms or risks identified at this time. Risk Assessment: Do you want to hurt yourself or someone else? Patient reports no desire to harm self or others. Onset of symptoms was November 20, 2021. Care prior to arrival: Medication(s) given: Tylenol, 1000 mg. 21:27 Method Of Arrival: Wheelchair vc1 21:27 Acuity: AMY 2 vc1 21:42 Initial Sepsis Screen: Does the patient meet any 2 criteria? RR > 20 per min. HR > 90 vc1 bpm. Yes Does the patient have a suspected source of infection? Yes: Other: Fever, cough, vomiting. Triage Assessment: 21:32 General: Appears in no apparent distress. uncomfortable, ill, Behavior is cooperative, vc1 appropriate for age, anxious. Pain: Complains of pain in Throat, head, neck, and back. Pain does not radiate. Pain currently is 10 out of 10 on a pain scale. EENT: Reports pain when swallowing. Neuro: Odom Agitation-Sedation Scale (RASS): -1 Drowsy Level of Consciousness is awake, alert, obeys commands, Oriented to person, place, time, situation, Appropriate for age Reports headache. Cardiovascular: No deficits noted. Respiratory: Airway is patent Respiratory effort is even, unlabored, Respiratory pattern is regular, symmetrical. GI: No deficits noted. : No deficits noted. 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 It has been more than one year since last vaccine. - Social history:: Smoking status: Patient denies any tobacco usage or history of. Screenin:18 Abuse screen: Denies threats or abuse. Nutritional screening: No deficits noted. ll3 Tuberculosis screening: No symptoms or risk factors identified. Fall Risk No fall in past 12 months (0 pts). No secondary diagnosis (0 pts). IV access (20 points). Ambulatory Aid- None/Bed Rest/Nurse Assist (0 pts). Gait- Normal/Bed Rest/Wheelchair (0 pts) Mental Status- Oriented to own ability (0 pts). Total Ortiz Fall Scale indicates No Risk (0-24 pts). Assessment: 22:18 General: Appears uncomfortable, Behavior is calm, cooperative. Pain: Denies pain. ll3 Neuro: Level of Consciousness is awake, alert, obeys commands, Oriented to person, place, time, situation, Reports weakness. GI: Abdomen is round non-distended, Reports nausea, vomiting, Patient currently denies diarrhea. Derm: Skin is clammy, Skin temperature is warm. 23:35 Reassessment: Patient and/or family updated on plan of care and expected duration. Pain ll3 level reassessed. Patient is alert, oriented x 3, equal unlabored respirations, skin warm/dry/pink. Patient states feeling better. Vital Signs: 21:34 BP 105 / 72 LA Sitting (auto/reg); Pulse 118 LA; Resp 29 S; Temp 100(O); Pulse Ox 97% vc1 on R/A; Weight 78.02 kg (R); Height 5 ft. 2 in. (157.48 cm) (R); Pain 10/10; 22:20 BP 103 / 63; Pulse 103; Resp 16; Pulse Ox 97% on R/A; ll3 21:34 Body Mass Index 31.46 (78.02 kg, 157.48 cm) vc1 ED Course: 21:23 Patient arrived in ED. ja2 21:24 Shekhar Rosa MD is Attending Physician. kdr 21:30 Triage completed. vc1 21:32 Arm band placed on right wrist. vc1 21:50 Inserted saline lock: 20 gauge in left antecubital area, using aseptic technique. Blood ll3 collected. 22:00 Initial lab(s) drawn, by ED staff, sent to lab. First set of blood cultures drawn by ED ll3 staff, Second set of blood cultures drawn by ED staff, EKG done, by ED staff, reviewed by Shekhar Rosa MD COVID swab sent to lab. Flu and/or RSV swab sent to lab. Strep swab sent to lab. 22:18 Patient has correct armband on for positive identification. Placed in gown. Bed in low ll3 position. Call light in reach. Side rails up X 1. vehicle monitor technician on. Pulse ox on. NIBP on. 22:25 Archana Galo, HEATHER is Primary Nurse. ll3 22:42 Chest Single View XRAY In Process Unspecified. EDMS 23:37 No provider procedures requiring assistance completed. IV discontinued, intact, ll3 bleeding controlled, No redness/swelling at site. Pressure dressing applied. Administered Medications: 22:16 Drug: NS 0.9% (30 ml/kg) 30 ml/kg Route: IV; Rate: bolus; Site: left antecubital; ll3 22:16 Drug: Tylenol 650 mg Route: PO; ll3 23:21 Follow up: Response: No adverse reaction; Marked relief of symptoms ll3 23:29 Drug: NS 0.9% (30 ml/kg) 30 ml/kg Route: IV; Rate: bolus; Site: left antecubital; ll3 23:35 Follow up: Response: No adverse reaction; IV Status: Order to discontinue infusion; IV ll3 Intake: 1200ml Intake: 23:35 IV: 1200ml; Total: 1200ml. ll3 Outcome: 23:19 Discharge ordered by . kdr 23:36 Patient left the ED. ll3 23:37 Discharged to home ambulatory. ll3 23:37 Condition: stable 23:37 Discharge instructions given to patient, Instructed on discharge instructions, follow up and referral plans. Demonstrated understanding of instructions, follow-up care. Signatures: Dispatcher [employer] Shekahr Aranda MD MD [facility] Tila Navarrete Lynsea RN RN ll3 Summer Lerma RN RN vc1 Corrections: (The following items were deleted from the chart) 22:12 21:27 Acuity: AMY 3 vc1 vc1
--- NOTE | 2021-11-21 23:21 | EDPHYS ---
Physician Documentation [facility] Name: Annetta Malcolm Age: 31 yrs Sex: Female : 1990 Arrival Date: 11/21/2021 Time: 21:23 Bed 14 Private MD: ED Physician Shekhar Rosa HPI: 11/21 22:17 This 31 yrs old Female presents to ER via Wheelchair with complaints of Fever, kdr Weakness. 22:19 The patient reports fever, that was measured at 101 degrees Fahrenheit. Onset: The kdr symptoms/episode began/occurred today. Modifying factors: there are no obvious modifying factors. Associated signs and symptoms: Pertinent positives: chills, cough, decreased appetite, myalgias, nausea, sore throat, vomiting. Severity of symptoms: At their worst the symptoms were mild moderate just prior to arrival, in the emergency department the symptoms are unchanged. The patient has not experienced similar symptoms in the past. The patient has not recently seen a physician. 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 It has been more than one year since last vaccine. - Social history:: Smoking status: Patient denies any tobacco usage or history of. ROS: 22:19 Eyes: Negative for injury, pain, redness, and discharge, Neck: Negative for injury, kdr pain, and swelling, Cardiovascular: Negative for chest pain, palpitations, and edema, Back: Negative for injury and pain, : Negative for injury, bleeding, discharge, and swelling, MS/Extremity: Negative for injury and deformity, Skin: Negative for injury, rash, and discoloration, Neuro: Negative for headache, weakness, numbness, tingling, and seizure activity. Psych: Negative for depression, anxiety, suicide ideation, homicidal ideation, and hallucinations, Allergy/Immunology: Negative for hives, rash, and allergies, Endocrine: Negative for neck swelling, polydipsia, polyuria, polyphagia, and marked weight changes, Hematologic/Lymphatic: Negative for swollen nodes, abnormal bleeding, and unusual bruising. 22:19 Constitutional: Positive for body aches, chills, fatigue, fever, malaise, poor PO intake. 22:19 ENT: Positive for sore throat, Negative for drainage from ear(s), foreign body sensation, Gum pain hearing loss, pulling at ears, Teeth pain 22:19 Respiratory: Positive for cough, with no reported sputum. Exam: 22:16 ECG was reviewed by the Attending Physician. kdr 23:22 Constitutional: This is a well developed, well nourished patient who is awake, alert, kdr and in no acute distress. Head/Face: Normocephalic, atraumatic. Eyes: Pupils equal round and reactive to light, extra-ocular motions intact. Lids and lashes normal. Conjunctiva and sclera are non-icteric and not injected. Cornea within normal limits. Periorbital areas with no swelling, redness, or edema. Neck: Trachea midline, no thyromegaly or masses palpated, and no cervical lymphadenopathy. Supple, full range of motion without nuchal rigidity, or vertebral point tenderness. No Meningismus. Chest/axilla: Normal chest wall appearance and motion. Nontender with no deformity. No lesions are appreciated. Cardiovascular: Regular rate and rhythm with a normal S1 and S2. No gallops, murmurs, or rubs. Normal PMI, no JVD. No pulse deficits. Respiratory: Lungs have equal breath sounds bilaterally, clear to auscultation and percussion. No rales, rhonchi or wheezes noted. No increased work of breathing, no retractions or nasal flaring. Abdomen/GI: Soft, non-tender, with normal bowel sounds. No distension or tympany. No guarding or rebound. No evidence of tenderness throughout. Back: No spinal tenderness. No costovertebral tenderness. Full range of motion. Skin: Warm, dry with normal turgor. Normal color with no rashes, no lesions, and no evidence of cellulitis. MS/ Extremity: Pulses equal, no cyanosis. Neurovascular intact. Full, normal range of motion. Neuro: Awake and alert, GCS 15, oriented to person, place, time, and situation. Cranial nerves II-XII grossly intact. Motor strength 5/5 in all extremities. Sensory grossly intact. Cerebellar exam normal. Normal gait. Psych: Awake, alert, with orientation to person, place and time. Behavior, mood, and affect are within normal limits. Vital Signs: 21:34 BP 105 / 72 LA Sitting (auto/reg); Pulse 118 LA; Resp 29 S; Temp 100(O); Pulse Ox 97% vc1 on R/A; Weight 78.02 kg (R); Height 5 ft. 2 in. (157.48 cm) (R); Pain 10/10; 22:20 BP 103 / 63; Pulse 103; Resp 16; Pulse Ox 97% on R/A; ll3 21:34 Body Mass Index 31.46 (78.02 kg, 157.48 cm) vc1 MDM: 23:19 Patient medically screened. kdr 23:22 Data reviewed: vital signs, nurses notes, lab test result(s), radiologic studies. kdr Counseling: I had a detailed discussion with the patient and/or guardian regarding: the historical points, exam findings, and any diagnostic results supporting the discharge/admit diagnosis, lab results, radiology results. 11/21 21:50 Order name: Blood Culture Adult (2) [facility] 11/21 21:50 Order name: CBC with Diff [facility] 11/21 21:50 Order name: CMP; Complete Time: 22:52 [facility] 11/21 21:50 Order name: Lactate; Complete Time: 22:52 [facility] 11/21 21:50 Order name: Protime (+inr); Complete Time: 22:52 [facility] 11/21 21:50 Order name: Ptt, Activated; Complete Time: 22:52 [facility] 11/21 21:50 Order name: Chest Single View XRAY [facility] 11/21 21:57 Order name: COVID-19/FLU A+B (Document "Date of Onset" if Symptomatic); Complete Time: mw2 23:10 11/21 22:17 Order name: Glucose, Ancillary Testing; Complete Time: 22:34 [facility] 11/21 22:17 Order name: Strep; Complete Time: 23:15 [facility] 11/21 22:39 Order name: Manual Differential [facility] 11/21 23:16 Order name: Throat Culture [facility] 11/21 23:17 Order name: Urine Dipstick-Ancillary; Complete Time: 23:21 [facility] 11/21 21:50 Order name: Accucheck; Complete Time: 22:16 [facility] 11/21 21:50 Order name: Cardiac monitoring; Complete Time: 22:16 [facility] 11/21 21:50 Order name: EKG - Nurse/Tech; Complete Time: 22:16 [facility] 11/21 21:50 Order name: IV Saline Lock - Large Bore; Complete Time: 22:16 [facility] 11/21 21:50 Order name: Labs collected and sent; Complete Time: 22:16 [facility] 11/21 21:50 Order name: O2 Per Protocol; Complete Time: 22:16 [facility] 11/21 21:50 Order name: O2 Sat Monitoring; Complete Time: 22:16 [facility] 11/21 21:50 Order name: Urine Dipstick-Ancillary (obtain specimen); Complete Time: 23:21 kdr EC:16 Rate is 111 beats/min. Rhythm is regular, Sinus tachycardia with No ectopy. QRS [place] is kdr Normal. [place] interval is normal. QRS interval is normal. QT interval is normal. Clinical impression: Sinus tachycardia. Administered Medications: 22:16 Drug: NS 0.9% (30 ml/kg) 30 ml/kg Route: IV; Rate: bolus; Site: left antecubital; ll3 22:16 Drug: Tylenol 650 mg Route: PO; ll3 23:21 Follow up: Response: No adverse reaction; Marked relief of symptoms ll3 23:29 Drug: NS 0.9% (30 ml/kg) 30 ml/kg Route: IV; Rate: bolus; Site: left antecubital; ll3 23:35 Follow up: Response: No adverse reaction; IV Status: Order to discontinue infusion; IV ll3 Intake: 1200ml Disposition Summary: 11/21/21 23:19 Discharge Ordered Location: Home kdr Problem: new kdr Symptoms: have improved kdr Condition: Stable kdr Diagnosis - Fever, unspecified kdr - Viral infection, unspecified kdr - Acute upper respiratory infection, unspecified kdr - Hyperglycemia, unspecified kdr Followup: kdr - With: Private Physician - When: 2 - 3 days - Reason: If symptoms return, Further diagnostic work-up, Recheck today's complaints, Continuance of care, Re-evaluation by your physician Discharge Instructions: - Discharge Summary Sheet kdr - Fever, Adult kdr - Upper Respiratory Infection, Adult, [id number] kdr - Viral Respiratory Infection, [id number] kdr - Viral Illness, Adult kdr - Hyperglycemia, [id number] kdr Forms: - Medication Reconciliation Form kdr - Thank You Letter kdr Signatures: Dispatcher [employer] Shekhar Aranda MD MD kdr Loubet, Lynsea RN RN ll3 Summer Lerma RN RN vc1
[2021-11-21 23:55] LABS: Blood Morphology Comment NOT SEEN (NOT SEEN); Platelet Estimate ADEQ
[2021-11-22 00:29] VITALS: TEMP 100; O2SAT 97
[2021-11-22 00:30] VITALS: BP 103/63
--- NOTE | 2021-11-23 14:36 | EKG ---
Test Date: 2021-11-21 Test Time: 22:04:00 Mold Burner: LIZ MEASUREMENT RESULTS: Intervals: Rate: 111 HI: 136 QRSD: 76 QT: 334 QTc: 454 [place]: P: 44 HI: 136 QRS: 69 T: 33 INTERPRETIVE STATEMENTS: Sinus tachycardia Otherwise normal ECG No previous ECG available for comparison Electronically Signed On 11-23-21 14:32:34 CDT by Anton Castro
--- NOTE | 2021-11-26 10:12 | RAD REPORT ---
EXAM DESCRIPTION: RAD - Chest Single View - 11/21/2021 10:40 pm CLINICAL HISTORY: 31 years Female weakness COMPARISON: None TECHNIQUE: AP view of the chest was obtained. FINDINGS: Cardiac size is within normal limits. Central vessels are not increased. No infiltrates or effusions seen. No consolidation. No pneumothorax. IMPRESSION: No active disease. Electronically signed by: Nadira Whitley MD 11/21/2021 10:53 PM CDT Due to temporary technical issues with the PACS/Fluency reporting system, reports are being signed by the in house radiologist without review as a courtesy to ensure prompt reporting. The interpreting r adiologist is fully responsible for the content of the report.
== END 2021-11-21 23:36 | disposition home or self-care (01) ==
LOC: ER 21:21
DX: B34.9 Viral infection, unspecified (principal); J06.9 Acute upper respiratory infection, unspecified; R73.9 Hyperglycemia, unspecified; I95.9 Hypotension, unspecified; Z91.048 Other nonmedicinal substance allergy status; Z20.822 Contact with and (suspected) exposure to COVID-19
CPT/HCPCS: 0240U; 36415; 71045; 80053; 81003; 82947; 83605; 85025; 85610; 85730; 87040; 87070; 87081; 87205; 93005; 96365; 99284; J7030; J7040

== ENCOUNTER 2022-07-10 23:12 | Emergency (ER) | payer SELFPAY ==
--- OUTSIDE RECORDS SUMMARY | 2022-07-10 23:16 | XMS REPORT | Continuity of Care Document ---
:1990 Author Organization [facility] t Address [address] [place] [address] Care Team Providers Name Role Phone Unavailable Unavailable Unavailable Problems This patient has no known problems. Allergies, Adverse Reactions, Alerts This patient has no known allergies or adverse reactions. Medications This patient has no known medications. Procedures This patient has no known procedures. Encounters Start End Encounter Admission Attending Care Care Encounter Source Date/Time Date/Time Type Type Clinicians Facility Department ID 2022-04-22 2022-04-22 Outpatient [facility] [id number] 09:20:33 09:20:33 [id number] [address] [place] Results Test Description Test Time Test Comments Results Result Comments Source HEMOGLOBIN A1c 2022-03-13 07:24:00 Test Item Value Reference Range Interpretation Comme nts HEMOGLOBIN A1c (test code = 7.2 % 4.2-5.6 H [employer] 71556) GUIDELINES FOR HGB A1C: PREDIABETES/INC REASED RISK . . . . . . . 5.7-6.4% DIAGNO SIS OF DIABETES . . . . . . . . . >=6.5% WITH CONFIRMATION OR APPROPRIATE SYM PTOMS NOTE: ASSAY MAY BE AFFECTED BY HEM OGLOBINOPATHIES (SICKLE CELL ANEMIA, S- C DISEASE, OTHERS) OR ARTIFICIALLY LO WERED BY DECREASED RED CELL SURVIVAL ( HEMOLYTIC ANEMIAS, BLOOD LOSS, ETC.). CO NSIDER ALTERNATE TESTING OR LABORATORY C ONSULTATION. PT DECLINED TEST CODE 162COMPREHENSIVE METABOLIC [id number] 04:29:13 Test Item Value Reference Range Interpretation Comments GLUCOSE (test code = 133 MG/DL 70-99 H 2216) BUN (test code = 11 MG/DL 6-20 2207) CREATININE (test 0.56 MG/DL 0.60-1.30 L code = 2214) eGFR (2020 CKD-EPI) 124 >60 (test code = 45160) ML/MIN/1.73 CALC BUN/CREAT (test 20 RATIO 6-28 code = 223) SODIUM (test code = 144 MEQ/L 286-134 7373) POTASSIUM (test code 4.2 MEQ/L 3.5-5.4 = 2227) CHLORIDE (test code 104 MEQ/L 95-107 = 2214) CARBON DIOXIDE (test 27 MEQ/L 19-31 code = 2205) CALCIUM (test code = 9.7 MG/DL 8.5-10.5 2208) PROTEIN, TOTAL (test 7.3 G/DL 6.1-8.3 code = 2228) ALBUMIN (test code = 4.6 G/DL 3.5-5.2 2200) CALC GLOBULIN (test 2.7 G/DL 1.9-3.7 code = 2239) CALC A/G RATIO (test 1.7 RATIO 1.0-2.6 code = 2233) BILIRUBIN, TOTAL 0.4 MG/DL See_Comment [Automated message] (test code = 220) The syste m which generated this result transmit bogdan reference range : <=1.2. The refe rence range was not u sed to interpret th is result as normal/abnormal . ALKALINE PHOSPHATASE 69 U/L 40-114 (test code = 2203) AST (test code = 12 U/L 9-40 2217) ALT (test code = 10 U/L 5-40 2218) PT DECLINED TEST CODE 162LIPID [id number] 04:29:13 Test Item Value Reference Range Interpretation Comments CHOLESTEROL (test 104 MG/DL <200 code = 2210) TRIGLYCERIDES (test 106 MG/DL <150 code = 2232) HDL CHOLESTEROL (test 34 MG/DL >39 L code = 2220) CALC LDL CHOL (test 51 MG/DL <100 NOTE: C ALCULATED LDL code = 2237) IS BASED ON IRIS-ALLEN METHOD WHICHINCLUDES ADJUSTABLE TRIGLYCERIDE:VL DL CHOLESTEROL RAT IO.THIS FACTOR VARIES B Y MEASURED TRIGLY CERIDE AND NON-HDLCHOL ESTEROL CONCENTRATIONS WITH INCREASED CALCU LATED LDL SEENIN HIGH ER TRIGLYCERIDE OR LOWER NON-HDL SPECIME NS. FOR MOREINFORMATION , SEE CLIENT ANNOUNCE MENT AT [email or web address] LDL/HDL 1.50 RATIO <3.22 UNLESS O THERWISE (test code = 2238) INDICATED , ALL TESTING PERFORMED [facility], [facility]. [address] [place] [id number] [facility] DIRECTOR: Angie BELLIA NUMBER [id number] CAP ACCREDITATION N O. [id number] PT DECLINED TEST CODE 162LIPID [id number] 04:41:45 Test Item Value Reference Range Interpretation Comments CHOLESTEROL (test 144 MG/DL <200 code = 2210) TRIGLYCERIDES (test 153 MG/DL <150 H code = 2232) HDL CHOLESTEROL (test 29 MG/DL >39 L code = 2220) CALC LDL CHOL (test 90 MG/DL <100 NOTE: C ALCULATED LDL code = 2237) IS BASED ON IRIS-ALLEN METHOD WHICHINCLUDES ADJUSTABLE TRIGLYCERIDE:VL DL CHOLESTEROL RAT IO.THIS FACTOR VARIES B Y MEASURED TRIGLY CERIDE AND NON-HDLCHOL ESTEROL CONCENTRATIONS WITH INCREASED CALCU LATED LDL SEENIN HIGH ER TRIGLYCERIDE OR LOWER NON-HDL SPECIME NS. FOR MOREINFORMATION , SEE CLIENT ANNOUNCE MENT AT [email or web address] [email or web address] RATIO LDL/HDL 3.10 RATIO <3.22 (test code = 2238) COMPREHENSIVE METABOLIC [id number] 04:41:45 Test Item Value Reference Range Interpretation Comments GLUCOSE (test code = 196 MG/DL 70-99 H 2216) BUN (test code = 8 MG/DL 6-20 2207) CREATININE (test 0.49 MG/DL 0.60-1.30 L code = 2214) eGFR (2020 CKD-EPI) 128 >60 (test code = 36401) ML/MIN/1.73 CALC BUN/CREAT (test 16 RATIO 6-28 code = 2235) SODIUM (test code = 138 MEQ/L 301-114 7494) POTASSIUM (test code 3.9 MEQ/L 3.5-5.4 = 2228) CHLORIDE (test code 100 MEQ/L 95-107 = 2215) CARBON DIOXIDE (test 25 MEQ/L 19-31 code = 2206) CALCIUM (test code = 9.3 MG/DL 8.5-10.5 2208) PROTEIN, TOTAL (test 7.1 G/DL 6.1-8.3 code = 2229) ALBUMIN (test code = 4.3 G/DL 3.5-5.2 220) CALC GLOBULIN (test 2.8 G/DL 1.9-3.7 code = 2240) CALC A/G RATIO (test 1.5 RATIO 1.0-2.6 code = 2234) BILIRUBIN, TOTAL 0.4 MG/DL See_Comment [Automated message] (test code = 2207) The syste m which generated this result transmitted ref erence range: <=1.2. T he reference range was not used to int erpret this result as normal/abnormal . ALKALINE PHOSPHATASE 88 U/L 40-114 (test code = 220) AST (test code = 44 U/L 9-40 H 2217) ALT (test code = 65 U/L 5-40 H UNLESS OTH ERWISE 2218) INDICATED, ALL TESTING PERFORM [facility], [facility]. [address] [place] [address] DIRECTOR: Angie BELLIA NUMBER [id number] CAP ACCREDITATION N O. [id number] CBC W/AUTO DIFF WITH [id number] 03:59:42 Test Item Value Reference Range Interpretation Comments WBC (test code = 7.4 K/UL 3.5-11.0 1001) RBC (test code = 4.73 M/UL 3.80-5.40 1002) HEMOGLOBIN (test code 12.3 G/DL 11.5-15.5 = 1003) HEMATOCRIT (test code 38.0 % 34.0-45.0 = 1004) MCV (test code = 80.3 fL 80.0-99.0 1005) MCH (test code = 26.0 PG 25.0-33.0 1006) MCHC (test code = 32.4 G/DL 31.0-36.0 1007) RDW (test code = 14.1 % 11.5-15.0 1038) NEUTROPHILS (test 69.9 % code = 1008) LYMPHOCYTES (test 21.6 % code = 1010) MONOCYTES (test code 4.3 % = 1011) EOSINOPHILS (test 3.5 % code = 1012) BASOPHILS (test code 0.3 % = 1013) IMMATURE GRANULOCYTES 0.4 % (test code = 1036) NUCLEATED RBCS (test 0.0 /100 WBC'S See_Comment [Aut omated code = 1065) message] The sy stem which generated this result transmitted reference range : 0.0. The refere nce range was not u sed to interpret th is result as normal/abnormal . PLATELET COUNT (test 264 K/UL 130-400 code = 1015) ABSOLUTE NEUTROPHILS 5.15 K/UL 1.50-7.50 (test code = 1066) ABSOLUTE LYMPHOCYTES 1.59 K/UL 1.00-4.00 (test code = 1067) ABSOLUTE MONOCYTES 0.32 K/UL 0.20-1.00 (test code = 1068) ABSOLUTE EOSINOPHILS 0.26 K/UL 0.00-0.50 (test code = 1040) ABSOLUTE BASOPHILS 0.02 K/UL 0.00-0.20 (test code = 1069) ABS IMMATURE 0.03 K/UL 0.00-0.10 GRANULOCYTES (test code = 1020) ABS NUCLEATED RBCS 0.00 K/UL 0.00-0.11 (test code = 89406) HEMOGLOBIN [id number] 03:56:55 Test Item Value Reference Range Interpretation Comments HEMOGLOBIN A1c (test 8.4 % 4.2-5.6 H [employer] code = 46456) ASSOCIATION IDELINES FOR HGB A1C: PREDIABETES/INC REASED RISK . . . . . . . 5.7 -6.4% DIAGNOSIS OF DI ABETES . . . . . . . . . >=6 .5% WITH CONFIRMATION OR APPROPRIATE SYMPTOMS NOTE: ASSAY MAY BE AFFECTED BY HEMOGLOBINOPATH IES (SICKLE CELL ANEMIA, S- C DISEASE, OTHERS) OR NAYANA FICIALLY LOWERED BY DECR EASED RED CELL SURVIVAL ( HEMOLYTIC ANEMIAS, BLOOD LOSS, ETC.). CONSIDER ALTERN ATE TESTING OR LABORATORY C ONSULTATION.
[2022-07-10] MEDS ORDERED: IBUPROFEN 400 MG TAB ONE (23:40)
--- NOTE | 2022-07-11 00:16 | ER ---
Nurse's Notes [facility] Name: Annetta Malcolm Age: 32 yrs Sex: Female : 1990 Arrival Date: 07/10/2022 Time: 23:17 Bed 14 Private MD: Diagnosis: Pain in right wrist Presentation: 07/10 23:25 Chief complaint: Patient states: "I hurt my wrist yesterday and it hurt so much. 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 Coronavirus screen: Vaccine status: Patient reports receiving the 2nd dose of the covid vaccine. [employer]. Ebola Screen: Patient negative for fever greater than or equal to 101.5 degrees Fahrenheit, and additional compatible Ebola Virus Disease symptoms Patient denies exposure to infectious person. Patient denies travel to an Ebola-affected area in the 21 days before illness onset. Initial Sepsis Screen: Does the patient meet any 2 criteria? No. Patient's initial sepsis screen is negative. Does the patient have a suspected source of infection? No. Patient's initial sepsis screen is negative. Risk Assessment: Do you want to hurt yourself or someone else? Patient reports no desire to harm self or others. Onset of symptoms was July 09, 2022. 23:25 Method Of Arrival: Ambulatory tw5 23:25 Acuity: AMY 4 tw5 Triage Assessment: 23:27 General: Appears in no apparent distress. Behavior is calm, cooperative, appropriate tw5 for age. Pain: Complains of pain in dorsal aspect of right wrist Pain currently is 8 out of 10 on a pain scale. Musculoskeletal: Reports. 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 - Social history:: Smoking status: Patient denies any tobacco usage or history of. Screenin:50 [facility] ED Fall Risk Assessment (Adult) History of falling in the last 3 months, ke1 including since admission No falls in past 3 months (0 pts) Confusion or Disorientation No (0 pts) Intoxicated or Sedated No (0 pts) Impaired Gait No (0 pts) Mobility Assist Device Used No (0 pt) Altered Elimination No (0 pt) Score/Fall Risk Level 0 - 2 = Low Risk Oriented to surroundings. Abuse screen: Denies threats or abuse. Nutritional screening: No deficits noted. Tuberculosis screening: No symptoms or risk factors identified. Vital Signs: 23:25 BP 128 / 84; Pulse 72; Resp 18; Temp 98.1; Pulse Ox 100% ; Weight 76.2 kg; Height 5 ft. tw5 2 in. (157.48 cm); Pain 8/10; 07/11 00:23 Pain 1/10; ke1 00:31 BP 126 / 78; Pulse 70; Resp 17; Temp 98.2; Pulse Ox 100% on R/A; ke1 07/10 23:25 Body Mass Index 30.73 (76.20 kg, 157.48 cm) tw5 ED Course: 07/10 23:17 Patient arrived in ED. ja2 23:23 Virginie Pimentel MD is Attending Physician. sd2 23:27 Triage completed. tw5 23:27 Arm band placed on. tw5 23:36 Ashtyn Haynes, RN is Primary Nurse. ke1 23:50 Bed in low position. Call light in reach. Side rails up X 1. ke1 23:56 XRAY Wrist RIGHT 3 view In Process Unspecified. EDMS 07/11 00:14 Edwin Bravo MD is Referral Physician. sd2 00:31 No provider procedures requiring assistance completed. Patient did not have IV access ke1 during this emergency room visit. Administered Medications: 07/10 23:41 Drug: Ibuprofen 800 mg Route: PO; ke1 07/11 00:23 Follow up: Pain 07/30 Adult ke1 00:23 Follow up: Response: Pain is decreased ke1 Medication: 00:31 VIS not applicable for this client. ke1 Outcome: 00:15 Discharge ordered by . sd2 00:32 Discharged to home ambulatory. ke1 00:32 Discharged to home ambulatory. 00:32 Condition: good 00:32 Discharge instructions given to patient. 00:32 Patient left the ED. ke1 Signatures: Dispatcher [employer] EDMN Tila Navarrete ja2 Mariela Bustamante tw5 Ashtyn Haynes RN RN ke1 Vriginie Pimentel MD MD sd2 Corrections: (The following items were deleted from the chart) 07/10 23:28 23:27 PMHx: gestational diabetes; tw5 tw5
--- NOTE | 2022-07-11 00:16 | EDPHYS ---
Physician Documentation [facility] Name: Annetta Malcolm Age: 32 yrs Sex: Female : 1990 Arrival Date: 07/10/2022 Time: 23:17 Bed 14 Private MD: ED Physician Virginie Pimentel HPI: 07/10 23:36 This 32 yrs old Female presents to ER via Ambulatory with complaints of Wrist sd2 Injury. 23:36 32 yo F presents with CC of R wrist pain that started yesterday after she was moving a sd2 case of beer at work at [employer] and twisted it. No significant swelling. Has been taking Tylenol with some relief and last took some around 5PM today. . 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 - Social history:: Smoking status: Patient denies any tobacco usage or history of. ROS: 23:36 MS/extremity: Positive for injury or acute deformity, pain, Negative for laceration, sd2 paresthesias, swelling. 23:36 Skin: Negative for abrasions, abscesses, cellulitis, discoloration, erythema, rash. 23:36 Neuro: Positive for Negative for numbness, tingling, weakness. Exam: 23:36 Hand exam: Exam is positive for sd2 23:36 Skin: Exam negative for 23:36 Skin: Warm, dry with normal turgor. Normal color with no rashes, no lesions, and no evidence of cellulitis. 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 tw5 2 in. (157.48 cm); Pain 8/10; 07/11 00:23 Pain 1/10; ke1 00:31 BP 126 / 78; Pulse 70; Resp 17; Temp 98.2; Pulse Ox 100% on R/A; ke1 07/10 23:25 Body Mass Index 30.73 (76.20 kg, 157.48 cm) tw5 MDM: 07/10 23:35 Patient medically screened. sd2 23:36 Differential diagnosis: fracture, sprain, strain, contusion, dislocation, tendonitis sd2 among others. Data reviewed: vital signs, nurses notes. 07/11 00:13 Data reviewed: radiologic studies. Counseling: I had a detailed discussion with the sd2 patient and/or guardian regarding: the historical points, exam findings, and any diagnostic results supporting the discharge/admit diagnosis, radiology results, the need for outpatient follow up, to return to the emergency department if symptoms worsen or persist or if there are any questions or concerns that arise at home. Medical screen evaluation completed. EMTALA emergency medical condition absent. ED course: Imaging reviewed with no acute traumatic injuries noted. Closed and NVI. Velcro wrist splint applied for comfort and patient advised of continued supportive care including NSAIDs and RICE therapy. Verbalizes understanding of discharge plan and strict return precautions. . 07/10 23:36 Order name: XRAY Wrist RIGHT 3 view sd2 07/11 00:12 Order name: Splint - Wrist: Velcro wrist splint sd2 Administered Medications: 07/10 23:41 Drug: Ibuprofen 800 mg Route: PO; ke1 07/11 00:23 Follow up: Pain 07/30 Adult ke1 00:23 Follow up: Response: Pain is decreased ke1 Disposition Summary: 07/11/22 00:15 Discharge Ordered Location: Home sd2 Problem: new sd2 Symptoms: have improved sd2 Condition: Stable sd2 Diagnosis - Pain in right wrist sd2 Followup: sd2 - With: Private Physician - When: 1 week - Reason: Recheck today's complaints, Continuance of care, Re-evaluation by your physician Followup: sd2 - With: Edwin Bravo MD - When: 1 week - Reason: Worsening of condition Discharge Instructions: - Discharge Summary Sheet sd2 - Musculoskeletal Pain sd2 - Wrist Pain, Adult sd2 Forms: - Medication Reconciliation Form sd2 - Thank You Letter sd2 - Antibiotic Education sd2 - Prescription Opioid Use sd2 Prescriptions: - Ibuprofen 800 mg Oral Tablet - take 1 tablet by ORAL route every 8 hours As needed take with food; 20 tablet; sd2 Refills: 0, Product Selection Permitted Signatures: Dispatcher [employer] Mariela Hernandez tw5 Ashtyn Hanyes RN RN ke1 Virginie Pimentel MD MD sd2 Corrections: (The following items were deleted from the chart) 07/10 23:28 23:27 PMHx: gestational diabetes; tw5 tw5
[2022-07-11 00:37] VITALS: O2SAT 100
[2022-07-11 00:39] VITALS: BP 126/78; TEMP 98.2
--- NOTE | 2022-07-11 11:37 | RAD REPORT ---
EXAM DESCRIPTION: Wrist Right 3 View 07/11/2022 12:06 AM RN INTENSIVE CARE UNIT CLINICAL HISTORY: 32 years, Female, PAIN Wrist Right 3 View COMPARISON: None. FINDINGS: 3 X-ray views of the right wrist (Frontal, lateral and oblique views) were performed. No acute bony injuries were demonstrated. No gross articular or soft tissue abnormality is identifi ed. There are no gross intraosseous lesions. No periosteal reaction were seen. Carpal bones dem onstrate normal alignment. IMPRESSION: Unremarkable right wrist radiographs. Electronically signed by: Todd Guerrero MD 07/11/2022 12:07 AM RN INTENSIVE CARE UNIT Due to temporary technical issues with the PACS/Fluency reporting system, reports are being signed by the in house radiologists without review as a courtesy to insure prompt reporting. The interpreting radiologist is fully responsible for the content of the report.
== END 2022-07-11 00:32 | disposition home or self-care (01) ==
LOC: ER 23:12
DX: M25.531 Pain in right wrist (principal)
CPT/HCPCS: 99283

== ENCOUNTER 2022-10-07 19:21 | Emergency (ER) | payer SELFPAY ==
--- OUTSIDE RECORDS SUMMARY | 2022-10-07 19:25 | XMS REPORT | Continuity of Care Document ---
:1990 Author Organization [facility] t Address [address] [facility] [address] [place] [address] Care Team Providers Name Role Phone Unavailable Unavailable Unavailable Problems This patient has no known problems. Allergies, Adverse Reactions, Alerts This patient has no known allergies or adverse reactions. Medications This patient has no known medications. Procedures This patient has no known procedures. Encounters Start End Encounter Admission Attending Care Care Encounter Source Date/Time Date/Time Type Type Clinicians Facility Department ID 2022-08-20 2022-08-20 Outpatient [facility] [id number] Josue 09:23:01 09:23:01 [id number] F Familia 2022-08-01 2022-08-01 Outpatient [facility] [id number] Josue 10:15:48 10:15:48 [id number] F [place] 2022-04-22 2022-04-22 Outpatient [facility] [id number] Josue 09:20:33 09:20:33 [id number] F [place]am[place] Results Test Description Test Time Test Comments Results Result Comments Source PAP TEST, THINPREP, IMAGED 2022-08-22 16:04:56 Test Item Value Reference Range Interpretation Comme nts SOURCE: (test code = Cervical/Endocervical 8001) SLIDES: (test code = 1 8011) LMP: (test code = 07/20 8021) SPECIMEN ADEQUACY: (NOTE) Satisfac tory for (test code = 93192) evaluati on. Endocervical cells/transform ation zone component not i dentified. INTERPRETATION: NILM/NO EPITH. ABNORMALITY;SEE (test code = 92483) BELOW -------- NEGATIVE FOR INTRAEPITHE LIAL LESION OR MALIGNANCY ( NILM) -- FLORAL DESIGNER: JAN Isaac(ASCP)IAC (test code = 8101) LOCATION: (test code (NOTE) Specime ns processed and = 17173) interpreted at [facility], [address] [place] [address], Phone: , CLIA: [id number] CPT: (test code = (NOTE) 66631 UNLE SS OTHERWISE 8140) INDICATED, COMP UTER AIDED AND CYTOTECHNOL OGIST SCREENING PERFO RMED. The Pap test is a scree cuate test with an inheren t, but low probability of error. Your patient should be reminded to consult you immediately if she experien koby any suspicious sign s or symptoms, regar dless of her Pap test result . An alternate repor t format containing imag es or consolidated pr ior Pap history is avai labmonroe as applicable. CT/NG, NAAT, [id number] 15:18:51 Test Item Value Reference Range Interpretation Comments GONORRHEA, NEGATIVE NEGATIVE Assay methodol ogy is nucleic NAAT (test acid amplificat ion by code = 99441) transcriptionm ediated amplification ( TMA) utilizing the Aptima Comb o 2 Assay. A negative result does not exclude low lev el infection, specimensamplin g error, or collection erro r. CHLAMYDIA, NEGATIVE NEGATIVE Assay methodol ogy is nucleic NAAT (test acid amplificat ion by code = 77107) transcriptionm ediated amplification ( TMA) utilizing the Aptima Comb o 2 Assay. A negative result does not exclude low lev el infection, specimensamplin g error, or collection erro r. UNLESS OTHERWISE INDIC ATED, ALL TESTING PERFORM ED ATCLINICAL PATHOLOGY LABOR [facility], [facility]. [address] [place] [address] LABORATORY DIRE CTOR: SHAUNA HELLER M.D. CLIA NUMBER [id number] [place]. [id number] HPV HIGH RISK WITH GENOTYPE, [id number] 13:11:16 Test Item Value Reference Range Interpretation Comments HPV HIGH RISK INTERP NEGATIVE NEGATIVE (test code = 54559) HPV 16 (test code = NEGATIVE 82525) HPV 18 (test code = NEGATIVE 13202) HPV, HR, OTHER NEGATIVE Testing meth odology is GENOTYPES (test code real-ti me PCR utilizing = 59085) hydrolysis prob es with the StartMeas 4800 system. The maliha t individually de tects genotypes 16 an d 18, as well as the oth er 12 high risk types (31,33,35,39,45 ,51,52,56 ,58,59,66,68). The expected result is negative. A neg ative result does not rule out the presence of HPV not included in the genotype set, a low leve l of infection or sp ecimen sampling error. [facility] has important p athology staff changes e ffective 09/18/2022. New pathology staff will provide uninter rupted, excellent patie nt care and clinical consultation. S ee URL: [email or web address]. UNLESS OTHERWISE INDICATED, ALL TESTING PERFORMED AT [facility] [employer]. [address] [place] [address] CLIA : [id number], CAP : [id number] VAGINAL PATHOGENS DNA [id number] 12:49:24 Test Item Value Reference Range Interpretation Comments ARIADNA SPECIES NEGATIVE NEGATIVE (test code = ) G. VAGINALIS POSITIVE NEGATIVE A (test code = ) T. VAGINALIS NEGATIVE NEGATIVE Note: The BD A ffirm VPIII (test code = Microbial Ident ification ) Testis a DNA pr obe test intended for us e in the detectionand id entification of Ariadna spec ies, Gardnerellavagi nalis and Trichomonas vag inalis nucleic acid. U NLESS OTHERWISE INDIC ATED, ALL TESTING PERFORM ED ATCLINICAL PATHOLOGY [employer] [facility]. [address] [place] [address] LABORATOR Y DIRECTOR: SHAUNA MORSE M.D. CLIA NUMBER [id number] CAP ACCREDITATION N O. [id number] HIV 1/2 4TH GEN, RFLX [id number] 04:36:56 Test Item Value Reference Range Interpretation Comments HIV 1/2 4TH GEN, RFLX CONF (test NON-REACTIVE NON-REACTIVE code = 3514) HEPATITIS PANEL, [id number] 04:36:56 Test Item Value Reference Range Interpretation Comments HEPATITIS A IgM (test NON-REACTIVE NON-REACTIVE code = 34703) HEPATITIS B CORE IgM NON-REACTIVE NON-REACTIVE (test code = 4644) HEPATITIS B SURF AG NON-REACTIVE NON-REACTIVE (test code = 2739) HEPATITIS C ANTIBODY NON-REACTIVE NON-REACTIVE (test code = 4675) INTERPRETATION (NOTE) Hepatitis A HEPATITIS A: (test code sero logy shows no = 2552) evidence of acu te hepatitis A. INTERPRETATION (NOTE) Hepatitis B HEPATITIS B: (test code sero logy shows no = 88005) evidence of acu te hepatitis B and no indication of exposure to hepatitis B vir us in the previous franklyn eight months. INTERPRETATION (NOTE) Hepatitis C HEPATITIS C: (test code sero logy shows no = 38887) evidence of exposure to hepatitisC viru s at this time. I t can take up to 12 months after exposure tothe hepatitis C vir us for antibodies to become detectab le in the blood in certain patient s. [id number] 03:55:54 Test Item Value Reference Range Interpretation Comments RPR RESULT (test code = NON-REACTIVE NON-REACTIVE 3501) RPR TITER (test code = 3500) NOT INDIC. TITER NOT INDIC. HEMOGLOBIN [id number] 07:04:00 Test Item Value Reference Range Interpretation Comments HEMOGLOBIN A1c (test 7.2 % 4.2-5.6 H AMERIC AN DIABETES code = 37152) ASSOCIATION IDELINES FOR HGB A1C: PREDIABETES/INC REASED [...] ALTERN ATE TESTING OR LABORATORY C ONSULTATION. LIPID [id number] 04:02:34 Test Item Value Reference Range Interpretation Comments CHOLESTEROL (test 125 MG/DL <200 code = 2210) TRIGLYCERIDES (test 130 MG/DL <150 code = 2232) HDL CHOLESTEROL (test 41 MG/DL >39 code = 2220) CALC LDL CHOL (test 63 MG/DL <100 NOTE: C ALCULATED LDL code = 2237) IS BASED ON IRIS-ALLEN METHOD WHICHINCLUDES ADJUSTABLE TRIGLYCERIDE:VL DL CHOLESTEROL RAT IO.THIS FACTOR VARIES B Y MEASURED TRIGLY CERIDE AND NON-HDLCHOL ESTEROL CONCENTRATIONS WITH INCREASED CALCU LATED LDL SEENIN HIGH ER TRIGLYCERIDE OR LOWER NON-HDL SPECIME NS. FOR MOREINFORMATION , SEE CLIENT ANNOUNCE MENT AT [email or web address] RISK RATIO LDL/HDL 1.54 RATIO <3.22 (test code = 2238) COMPREHENSIVE METABOLIC [id number] 04:02:34 Test Item Value Reference Range Interpretation Comments GLUCOSE (test code = 126 MG/DL 70-99 H 2216) BUN (test code = 10 MG/DL 6-20 2207) CREATININE (test 0.54 MG/DL 0.60-1.30 L code = 2214) eGFR (2020 CKD-EPI) 125 >60 (test code = 50622) ML/MIN/1.73 CALC BUN/CREAT (test 19 RATIO 6-28 code = 2235) SODIUM (test code = 140 MEQ/L 436-822 4422) POTASSIUM (test code 4.7 MEQ/L 3.5-5.4 = 2227) CHLORIDE (test code 102 MEQ/L 95-107 = 2215) CARBON DIOXIDE (test 27 MEQ/L 19-31 code = 2206) CALCIUM (test code = 10.0 MG/DL 8.5-10.5 2208) PROTEIN, TOTAL (test 7.6 G/DL 6.1-8.3 code = 2229) ALBUMIN (test code = 4.7 G/DL 3.5-5.2 2200) CALC GLOBULIN (test 2.9 G/DL 1.9-3.7 code = 2240) CALC A/G RATIO (test 1.6 RATIO 1.0-2.6 code = 2234) BILIRUBIN, TOTAL 0.5 MG/DL See_Comment [Automated message] (test code = 2207) The syste m which generated this result transmitted ref erence range: <=1.2. T he reference range was not used to int erpret this result as normal/abnormal . ALKALINE PHOSPHATASE 70 U/L 40-114 (test code = 220) AST (test code = 16 U/L 9-40 2217) ALT (test code = 13 U/L 5-40 UNLESS OTH ERWISE 2218) INDICATED, ALL TESTING PERFORM ED ATCLINICAL PATH OLOGY LABORATORIES, [place]. [address] [place] [address] [facility] DIRECTOR: SHAUNA HELLER M.D. CLIA NUMBER [id number] CAP ACCREDITATION N O. [id number] HEMOGLOBIN [id number] 07:24:00 Test Item Value Reference Range Interpretation Comments HEMOGLOBIN A1c (test 7.2 % 4.2-5.6 H AMERIC AN DIABETES code = 57595) ASSOCIATION IDELINES FOR HGB A1C: PREDIABETES/INC REASED [...] ALTERN ATE TESTING OR LABORATORY C ONSULTATION. PT DECLINED TEST CODE 162COMPREHENSIVE METABOLIC [id number] 04:29:13 Test Item Value Reference Range Interpretation Comments GLUCOSE (test code = 133 MG/DL 70-99 H 2216) BUN (test code = 11 MG/DL -2207) CREATININE (test 0.56 MG/DL 0.60-1.30 L code = 221) eGFR (2020 CKD-EPI) 124 >60 (test code = 22668) ML/MIN/1.73 CALC BUN/CREAT (test 20 RATIO 6-28 code = 2235) SODIUM (test code = 144 MEQ/L 266-404 9110) POTASSIUM (test code 4.2 MEQ/L 3.5-5.4 = 2228) CHLORIDE (test code 104 MEQ/L 95-107 = 2215) CARBON DIOXIDE (test 27 MEQ/L 19-31 code = 2206) CALCIUM (test code = 9.7 MG/DL 8.5-10.5 2208) PROTEIN, TOTAL (test 7.3 G/DL 6.1-8.3 code = 2229) ALBUMIN (test code = 4.6 G/DL 3.5-5.2 2200) CALC GLOBULIN (test 2.7 G/DL 1.9-3.7 code = 2240) CALC A/G RATIO (test 1.7 RATIO 1.0-2.6 code = 2234) BILIRUBIN, TOTAL 0.4 MG/DL See_Comment [Automated message] (test code = 220) The syste m which generated this result transmit bogdan reference range : <=1.2. The refe rence range was not u sed to interpret th is result as normal/abnormal . ALKALINE PHOSPHATASE 69 U/L 40-114 (test code = 220) AST (test code = 12 U/L 9-40 2217) ALT (test code = 10 U/L 5-40 2218) PT DECLINED TEST CODE 162LIPID [id number] 04:29:13 Test Item Value Reference Range Interpretation [...] MOREINFORMATION , SEE CLIENT ANNOUNCE MENT AT [email or web address] RISK RATIO LDL/HDL 1.50 RATIO <3.22 UNLESS O THERWISE (test code = 2238) INDICATED , ALL TESTING PERFORMED [facility], [place]. [address] [place] [address] [facility] DIRECTOR: SHAUNA HELLER M.D. CLIA NUMBER [id number] CAP ACCREDITATION N O. [id number] PT DECLINED TEST CODE 162LIPID [id number] 04:41:45 Test Item Value Reference Range Interpretation [...] MOREINFORMATION , SEE CLIENT ANNOUNCE MENT AT [email or web address] /[email or web address] RISK RATIO LDL/HDL 3.10 RATIO <3.22 (test code = 2238) COMPREHENSIVE METABOLIC [id number] 04:41:45 Test Item Value Reference Range Interpretation Comments GLUCOSE (test code = 196 MG/DL 70-99 H 2216) BUN (test code = 8 MG/DL 6-20 2207) CREATININE (test 0.49 MG/DL 0.60-1.30 L code = 2214) eGFR (2020 CKD-EPI) 128 >60 (test code = 39100) ML/MIN/1.73 CALC BUN/CREAT (test 16 RATIO 6-28 code = 2235) SODIUM (test code = 138 MEQ/L 905-039 0591) POTASSIUM (test code 3.9 MEQ/L 3.5-5.4 = 2227) CHLORIDE (test code 100 MEQ/L 95-107 = 2215) CARBON DIOXIDE (test 25 MEQ/L 19-31 code = 2206) CALCIUM (test code = 9.3 MG/DL 8.5-10.5 2208) PROTEIN, TOTAL (test 7.1 G/DL 6.1-8.3 code = 2229) ALBUMIN (test code = 4.3 G/DL 3.5-5.2 2200) CALC GLOBULIN (test 2.8 G/DL 1.9-3.7 code [...] (test code = 44 U/L 9-40 H 2218) ALT (test code = 65 U/L 5-40 H UNLESS OTH ERWISE 9) INDICATED, ALL TESTING PERFORM ED ATCLINICAL PATH OLOGY LABORATORIES, [place] [place] [address] [facility] DIRECTOR: SHAUNA HELLER M.D. CLIA NUMBER [id number] CAP ACCREDITATION N O. [id number] CBC W/AUTO DIFF WITH [id number] 03:59:42 Test Item Value Reference Range Interpretation [...] RBCS 0.00 K/UL 0.00-0.11 (test code = 32589) HEMOGLOBIN [id number] 03:56:55 Test Item Value Reference Range Interpretation Comments HEMOGLOBIN A1c (test 8.4 % 4.2-5.6 H AMERIC AN DIABETES code = 88002) ASSOCIATION IDELINES FOR HGB A1C: PREDIABETES/INC REASED [...]
[2022-10-07] MEDS ORDERED: ONDANSETRON 4 MG/2 ML VIAL ONE (20:31)
[2022-10-07] MEDS ORDERED: MORPHINE 2 MG/ML SYR ONE (20:31)
[2022-10-07] MEDS ORDERED: NA CHLORIDE 0.9% 1,000 ML ONE (20:31)
[2022-10-07 20:36] LABS: Absolute Lymphocytes (CBC) 0.9 K/uL (0.7-4.9); Lymphocytes % 9.8 % (15.3-44.8); MCV 80.8 fL (80-100); MPV 7.7 fL (7.6-11.3); RBC Red Blood Cell Count 5.32 M/uL (3.86-4.86)
--- NOTE | 2022-10-07 21:16 | RAD REPORT ---
EXAM DESCRIPTION: US - Abdomen Exam Limited - 10/07/2022 9:01 pm CLINICAL HISTORY: Abdominal pain. COMPARISON: None. FINDINGS: Multiple gallstones. Gallbladder wall is not thickened. The biliary tree is normal caliber. IMPRESSION: Cholelithiasis without evidence cholecystitis
[2022-10-07 22:16] LABS: Magnesium 1.9 mg/dL (1.6-2.4)
[2022-10-07 22:23] LABS: Albumin 3.6 g/dL (3.4-5.0); Bilirubin Total 0.6 mg/dL (0.2-1.0); Protein, Total 7.1 g/dL (6.4-8.2)
[2022-10-07 22:25] LABS: Specific Gravity 1.028 (1.005-1.030); Urine Bilirubin NEGATIVE (Negative); Urine Blood Negative (Negative); Urine Clarity Clear (Clear); Urine Color Light-Yellow (Yellow); Urine Glucose NEGATIVE (Negative); Urine Protein NEGATIVE (Negative); Urine Urobilinogen Normal (Normal); Urine pH 6.5 (5.0-7.0)
[2022-10-07] MEDS ORDERED: FAMOTIDINE 20 MG/2 ML VIAL IV ONE (22:50)
--- NOTE | 2022-10-08 00:52 | EDPHYS ---
Physician Documentation [facility] Name: Annetta Malcolm Age: 32 yrs Sex: Female : 1990 Arrival Date: 10/07/2022 Time: 19:25 Bed 25 Private MD: ED Physician Collins Hart HPI: 10/07 21:00 This 32 yrs old Female presents to ER via Ambulatory with complaints of Abdominal cp Pain, Nausea/Vomiting, High Blood Sugar. 21:00 The patient presents with abdominal pain in the upper abdomen. Onset: The cp symptoms/episode began/occurred this morning. The symptoms radiate to Associated signs and symptoms: Pertinent positives: nausea and vomiting, anorexia, Pertinent negatives: chest pain, constipation, diarrhea, dysuria, fever, vomiting blood. The symptoms are described as constant. Severity of pain: in the emergency department the pain is unchanged despite home interventions. 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 - Social history:: Smoking status: Patient denies any tobacco usage or history of. ROS: 21:05 Constitutional: Positive for poor PO intake, Negative for body aches, chills, fever. cp 21:05 Eyes: Negative for injury, pain, redness, and discharge. cp 21:05 ENT: Negative for drainage from ear(s), ear pain, sore throat, difficulty swallowing, difficulty handling secretions. 21:05 Cardiovascular: Negative for chest pain, edema, palpitations. 21:05 Respiratory: Negative for cough, shortness of breath, wheezing. 21:05 Abdomen/GI: Positive for abdominal pain, nausea and vomiting, Negative for diarrhea, constipation, black/tarry stool, rectal bleeding. 21:05 Back: Positive for pain at rest, radiated pain. 21:05 Neuro: Negative for altered mental status, dizziness, headache, syncope, weakness. 21:05 All other systems are negative. Exam: 21:10 Constitutional: The patient appears in no acute distress, alert, awake, cp non-diaphoretic, non-toxic, well developed, well nourished, uncomfortable. 21:10 Head/Face: Normocephalic, atraumatic. cp 21:10 Eyes: Periorbital structures: appear normal, Conjunctiva: normal, no exudate, no injection, Sclera: no appreciated abnormality, Lids and lashes: appear normal, bilaterally. 21:10 ENT: External ear(s): are unremarkable, Nose: is normal, Mouth: Lips: moist, Oral mucosa: moist, Posterior pharynx: is normal, airway is patent, no erythema, no exudate. 21:10 Chest/axilla: Inspection: normal. 21:10 Cardiovascular: Rate: tachycardic, Rhythm: regular, Edema: is not appreciated, JVD: is not appreciated. 21:10 Respiratory: the patient does not display signs of respiratory distress, Respirations: normal, no use of accessory muscles, no retractions, labored breathing, is not present, Breath sounds: are clear throughout, no decreased breath sounds, no stridor, no wheezing. 21:10 Abdomen/GI: Inspection: abdomen appears normal, Bowel sounds: active, all quadrants, Palpation: soft, in all quadrants, moderate abdominal tenderness, in the epigastric area and right upper quadrant, rebound tenderness, is not appreciated, involuntary guarding, is not appreciated. 21:10 Back: pain, that is moderate, of the mid upper back, ROM is normal. 21:10 Skin: cellulitis, is not appreciated, no rash present. 21:10 Neuro: Orientation: to person, place \T\ time. Mentation: is normal, Motor: moves all fours, strength is normal, Sensation: is normal. Vital Signs: 20:11 BP 117 / 84; Pulse 115; Resp 18 S; Temp 98.4(O); Pulse Ox 100% on R/A; Weight 74.84 kg as6 (R); Height 5 ft. 2 in. (R); Pain 6/10; 22:38 BP 101 / 60; Pulse 86; Resp 18 S; Temp 98.6; Pulse Ox 97% on R/A; bb 10/08 00:50 BP 119 / 92; Pulse 112; Resp 20; Temp 98.3; Pulse Ox 100% on R/A; Pain 3/10; rv1 10/07 20:11 Body Mass Index 30.18 (74.84 kg, 157.48 cm) as6 10/07 20:11 Pain Scale: Adult as6 10/08 00:50 Pain Scale: Adult rv1 MDM: 10/07 20:37 Patient medically screened. cp 21:00 Differential diagnosis: appendicitis, cholecystitis, Cholelithiasis, gastritis, cp non-specific abd pain, Ovarian Torsion, pancreatitis, Peptic Ulcer Disease, Perf. Duodenal Ulcer, Perf. Gastric Ulcer, Pyelonephritis, Ureterolithiasis, urinary tract infection. 10/08 00:50 Data reviewed: vital signs, nurses notes, lab test result(s), radiologic studies, CT cp scan, ultrasound. 00:50 Consideration of Admission/Observation Escalation of care including cp admission/observation considered. I considered the following discharge prescriptions or medication management in the emergency department Medications were administered in the Emergency Department. See MAR. Care significantly affected by the following chronic conditions: Diabetes. Counseling: I had a detailed discussion with the patient and/or guardian regarding: the historical points, exam findings, and any diagnostic results supporting the discharge/admit diagnosis, lab results, radiology results, the need for outpatient follow up, for definitive care, a general surgeon, to return to the emergency department if symptoms worsen or persist or if there are any questions or concerns that arise at home. 10/07 20:17 Order name: CBC with Diff; Complete Time: 21:52 as6 10/07 20:17 Order name: CMP; Complete Time: 22:28 as6 10/07 22:28 Interpretation: Normal except: GLUC 158; CRE 0.54; AST 8; CA 8.4; A/G 1.0. cp 10/07 20:17 Order name: Lipase; Complete Time: 22:28 as6 10/07 20:27 Order name: PREGU; Complete Time: 22:28 cp 10/07 20:27 Order name: Urinalysis W/Microscopic; Complete Time: 22:28 cp 10/07 20:28 Order name: Ketone, Serum; Complete Time: 22:28 cp 10/07 20:28 Order name: Magnesium; Complete Time: 22:28 cp 10/07 20:27 Order name: US Abdomen Limited; Complete Time: 21:52 cp 10/07 21:52 Interpretation: Report reviewed. cp 10/07 22:38 Order name: Abdomen EDMS 10/07 20:17 Order name: IV Saline Lock; Complete Time: 20:32 as6 10/07 20:17 Order name: Labs collected and sent; Complete Time: 20:32 as6 10/07 20:38 Order name: Misc. Order: recollect green top; Complete Time: 22:29 bb 10/08 00:41 Order name: PO challenge; Complete Time: 00:45 cp Administered Medications: 10/07 20:32 Drug: Ondansetron IVP 4 mg Route: IVP; Site: left antecubital; as6 22:55 Follow up: Response: No adverse reaction bb 20:32 Drug: NS 0.9% IV 1000 ml Route: IV; Rate: 1 bolus; Site: left antecubital; as6 21:30 Follow up: IV Status: Completed infusion; IV Intake: 950ml bb 20:32 Drug: morphine IVP or IV 2 mg Route: IVP; Infused Over: 4 mins; Site: left antecubital; as6 22:55 Follow up: Response: No adverse reaction bb 22:49 Drug: Famotidine IVP 20 mg Route: IVP; Site: left antecubital; bb 22:55 Follow up: Response: No adverse reaction 10/08 01:10 Drug: Ketorolac IVP 15 mg Route: IVP; Site: left antecubital; bb 01:21 Follow up: Response: Medication administered at discharge. bb 01:21 Drug: Dicyclomine IM 20 mg Route: IM; Site: right gluteus; bb 01:21 Follow up: Response: Medication administered at discharge. bb Disposition Summary: 10/08/22 00:51 Discharge Ordered Location: Home cp Problem: new cp Symptoms: have improved cp Condition: Stable cp Diagnosis - Nausea with vomiting, unspecified cp - Other cholelithiasis without obstruction cp Followup: cp - With: Fredrick Barba MD - When: 1 - 2 days - Reason: Recheck today's complaints Discharge Instructions: - Discharge Summary Sheet cp - Nausea and Vomiting, Adult cp - Cholelithiasis cp Forms: - Medication Reconciliation Form cp - Thank You Letter cp - Antibiotic Education cp - Prescription Opioid Use cp Prescriptions: - Pepcid 20 mg Oral Tablet - take 1 tablet by ORAL route every 12 hours for 10 days; 20 tablet; Refills: 0, cp Product Selection Permitted - Zofran 4 mg Oral Tablet - take 1 tablet by ORAL route every 12 hours As needed; 20 tablet; Refills: 0, cp Product Selection Permitted - dicyclomine 20 mg Oral Tablet - take 1 tablet by ORAL route 4 times per day; 30 tablet; Refills: 0, Product cp Selection Permitted Signatures: Dispatcher [employer] EDMya Laguerre, RN RN bb Mauricio Ambrose PA PA cp Slawson, Ashby, RN RN as6 Corrections: (The following items were deleted from the chart) 10/07 22:38 22:29 Abdomen Pelvis W Con+CT.RAD.BRZ ordered. EDMS EDMS
--- NOTE | 2022-10-08 00:52 | ER ---
Nurse's Notes [facility] Name: Annetta Malcolm Age: 32 yrs Sex: Female : 1990 Arrival Date: 10/07/2022 Time: 19:25 Bed 25 Private MD: Diagnosis: Nausea with vomiting, unspecified;Other cholelithiasis without obstruction Presentation: 10/07 20:11 Chief complaint: Patient states: "I'm having bad belly pain and I've been throwing up". as6 Coronavirus screen: At this time, the client does not indicate any symptoms associated with coronavirus-19. Ebola Screen: No symptoms or risks identified at this time. Initial Sepsis Screen: Does the patient meet any 2 criteria? No. Patient's initial sepsis screen is negative. Does the patient have a suspected source of infection? No. Patient's initial sepsis screen is negative. Risk Assessment: Do you want to hurt yourself or someone else? Patient reports no desire to harm self or others. Onset of symptoms was October 07, 2022. 20:11 Method Of Arrival: Ambulatory as6 20:11 Acuity: AMY 3 as6 Triage Assessment: 20:14 General: Appears uncomfortable, Behavior is calm, cooperative. Pain: Complains of pain as6 in abdomen. GI: Reports lower abdominal pain, nausea, vomiting. 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 - Social history:: Smoking status: Patient denies any tobacco usage or history of. Screenin:32 [facility] ED Fall Risk Assessment (Adult) History of falling in the last 3 months, bb including since admission No falls in past 3 months (0 pts) Confusion or Disorientation No (0 pts) Intoxicated or Sedated No (0 pts) Impaired Gait No (0 pts) Score/Fall Risk Level 0 - 2 = Low Risk Oriented to surroundings, Maintained a safe environment. Abuse screen: Denies threats or abuse. Nutritional screening: No deficits noted. Tuberculosis screening: No symptoms or risk factors identified. Assessment: 22:33 General: Appears in no apparent distress. uncomfortable. Pain: Complains of pain in bb abdomen. Neuro: Level of Consciousness is awake, alert, obeys commands, Oriented to person, place, time, situation. Cardiovascular: Capillary refill < 3 seconds Patient's skin is warm and dry. Respiratory: Airway is patent Respiratory effort is even, unlabored. GI: Bowel sounds present X 4 quads. Abd is soft X 4 quads. Derm: Skin is pink, warm \\T\\ dry. Musculoskeletal: Circulation, motion, and sensation intact. 22:58 Reassessment: pt to CT scan via wheelchair accompanied by sonogram technician. bb 10/08 01:21 Reassessment: Patient is alert, oriented x 3, equal unlabored respirations, skin bb warm/dry/pink. pt verbalized understanding of and agrees to plan of care discharge instructions given pt ambulated with steady gait to exit accompanied by family. Vital Signs: 10/07 20:11 BP 117 / 84; Pulse 115; Resp 18 S; Temp 98.4(O); Pulse Ox 100% on R/A; Weight 74.84 kg as6 (R); Height 5 ft. 2 in. (R); Pain 6/10; 22:38 BP 101 / 60; Pulse 86; Resp 18 S; Temp 98.6; Pulse Ox 97% on R/A; bb 10/08 00:50 BP 119 / 92; Pulse 112; Resp 20; Temp 98.3; Pulse Ox 100% on R/A; Pain 3/10; rv1 10/07 20:11 Body Mass Index 30.18 (74.84 kg, 157.48 cm) as6 10/07 20:11 Pain Scale: Adult as6 10/08 00:50 Pain Scale: Adult rv1 ED Course: 10/07 19:25 Patient arrived in ED. rg4 20:14 Triage completed. as6 20:14 Arm band placed on. as6 20:22 Mauricio Ambrose PA is PHCP. cp 20:22 Collins Hart MD is Attending Physician. cp 20:23 Inserted saline lock: 20 gauge in left antecubital area, using aseptic technique. Blood as6 collected. 21:03 US Abdomen Limited In Process Unspecified. EDMS 22:11 Magnesium Sent. rv1 22:11 Ketone, Serum Sent. rv1 22:11 PREGU Sent. rv1 22:11 Urinalysis W/Microscopic Sent. rv1 22:11 CMP Sent. rv1 22:11 Lipase Sent. rv1 22:33 Patient has correct armband on for positive identification. Pulse ox on. NIBP on. bb 22:58 Mya Bauer, RN is Primary Nurse. bb 23:09 Abdomen In Process Unspecified. EDMS 10/08 00:51 Fredrick Barba MD is Referral Physician. cp 01:22 IV discontinued, intact, bleeding controlled, No redness/swelling at site. Pressure bb dressing applied. 01:22 No provider procedures requiring assistance completed. bb 01:25 Primary Nurse role handed off by Mya Bauer RN cp Administered Medications: 10/07 20:32 Drug: Ondansetron IVP 4 mg Route: IVP; Site: left antecubital; as6 22:55 Follow up: Response: No adverse reaction bb 20:32 Drug: NS 0.9% IV 1000 ml Route: IV; Rate: 1 bolus; Site: left antecubital; as6 21:30 Follow up: IV Status: Completed infusion; IV Intake: 950ml bb 20:32 Drug: morphine IVP or IV 2 mg Route: IVP; Infused Over: 4 mins; Site: left antecubital; as6 22:55 Follow up: Response: No adverse reaction bb 22:49 Drug: Famotidine IVP 20 mg Route: IVP; Site: left antecubital; bb 22:55 Follow up: Response: No adverse reaction bb 10/08 01:10 Drug: Ketorolac IVP 15 mg Route: IVP; Site: left antecubital; bb 01:21 Follow up: Response: Medication administered at discharge. bb 01:21 Drug: Dicyclomine IM 20 mg Route: IM; Site: right gluteus; bb 01:21 Follow up: Response: Medication administered at discharge. bb Medication: 10/07 22:33 VIS not applicable for this client. bb Intake: 21:30 IV: 950ml; Total: 950ml. bb Outcome: 10/08 00:51 Discharge ordered by . cp 01:22 Discharged to home ambulatory, with family. bb 01:22 Condition: stable 01:22 Discharge instructions given to patient, Instructed on discharge instructions, follow up and referral plans. Demonstrated understanding of instructions, follow-up care. 01:22 Patient left the ED. bb 01:27 Patient left the ED. bb Signatures: Dispatcher [employer] Mya Luque RN RN bb Mauricio Ambrose PA PA cp Garcia, Rubi rg4 Feliciano Shipley RN RN as6 Eileen Connor rv1
[2022-10-08] MEDS ORDERED: KETOROLAC 30 MG/ML INJ ONE (01:17)
[2022-10-08] MEDS ORDERED: DICYCLOMINE HCL 20 MG/2 ML AMP IM ONE (01:17)
--- NOTE | 2022-10-08 10:19 | RAD REPORT ---
EXAM DESCRIPTION: CT - Abdomen Pelvis Wo Contrast - 10/08/2022 6:48 am CLINICAL HISTORY: The patient is 32 years old and is Female; ABD PAIN TECHNIQUE: Axial computed tomography images of the abdomen and pelvis without intravenous contrast. Sagittal and coronal reformatted images were created and reviewed. This CT exam was performed usi ng one or more of the following dose reduction techniques: automated exposure control, adjustment o f the mA and/or kV according to patient size, and/or use of iterative reconstruction technique. COMPARISON: No relevant prior studies available. FINDINGS: Lung bases: Unremarkable. No mass. No consolidation. ABDOMEN: Liver: Unremarkable. Gallbladder and bile ducts: Unremarkable. No calcified stones. No ductal dilation. Pancreas: Unremarkable. No ductal dilation. Spleen: Unremarkable. No splenomegaly. Adrenals: Unremarkable. No mass. Kidneys and ureters: Unremarkable. No obstructing stones. No hydronephrosis. Stomach and bowel: Unremarkable. No obstruction. No mucosal thickening. PELVIS: Appendix: No findings to suggest acute appendicitis. Bladder: Unremarkable. Reproductive: 2 cm simple appearing right ovarian/adnexal cyst. No follow-up imaging is recommen ded. ABDOMEN and PELVIS: Intraperitoneal space: Unremarkable. No free air. No significant fluid collection. Bones/joints: No acute fracture. No dislocation. Soft tissues: Unremarkable. Vasculature: Unremarkable. No abdominal aortic aneurysm. Lymph nodes: Unremarkable. No enlarged lymph nodes. IMPRESSION: No acute finding in the abdomen/pelvis. Electronically signed by: Grzegorz Taylor MD 10/07/2022 11:37 PM CDT Due to temporary technical issues with the PACS/Fluency reporting system, reports are being signed by the in house radiologists without review as a courtesy to insure prompt reporting. The interpreting radiologist is fully responsible for the content of the report.
[2022-10-08 10:21] VITALS: BP 119/92; TEMP 98.3; O2SAT 100
== END 2022-10-08 01:27 | disposition home or self-care (01) ==
LOC: ER 19:21
DX: K80.80 Other cholelithiasis without obstruction (principal); E11.9 Type 2 diabetes mellitus without complications; Z91.048 Other nonmedicinal substance allergy status
CPT/HCPCS: 36415; 74176; 76705; 80053; 81001; 81025; 82010; 83690; 83735; 85025; 96361; 96372; 96374; 96375; 99284; J0500; J2270; J2405; J7030